=== PATIENT | female | born 1965 | race Caucasian/White ===

== ENCOUNTER 2017-02-10 11:05 | Emergency (ER) | payer SELFPAY ==
[~2017-02-10] VITALS: Ht 172.7 cm; Wt 90.9 kg
[2017-02-10 11:07] VITALS: TEMP 98.3
[2017-02-10] MEDS ORDERED: LEXAPRO20 MG PO (11:36)
[2017-02-10] MEDS ORDERED: NORVASC 10MG10 MG PO (11:37)
[2017-02-10] MEDS ORDERED: ZESTRIL40 MG PO (11:37)
[2017-02-10] MEDS ORDERED: LIPITOR 80MG80 MG PO (11:37)
[2017-02-10] MEDS ORDERED: PLAVIX 75MG TAB75 MG PO (11:37)
[2017-02-10] MEDS ORDERED: NITROSTAT0.4 MG/TAB SL (11:38)
[2017-02-10] MEDS ORDERED: TENORMIN 5050 MG/TAB PO (11:38)
[2017-02-10] MEDS ORDERED: ASPIRIN 81M81 MG/TA2 PO (11:38)
[2017-02-10 11:56] LABS: BASO # 0.1 (0.0-0.2); BASO % 0.8 % (0.0-2.0); EOS # 0.1 (0.0-0.7); GRAN # 4.3 (1.4-6.5); HEMATOCRIT 40.4 % (37.0-47.0); HEMOGLOBIN 13.3 g/dl (12.5-16.0); LYMPH # 1.5 (1.2-3.4); LYMPH % 22.8 % (20.0-51.0); MEAN CELL VOLUME 93 fl (80.0-100.0); MEAN CORPUSCULAR HEMOGLOBIN 31 pg (27.0-31.0); MEAN CORPUSCULAR HGB CONC 33 g/dl (33.0-37.0); MONO # 0.4 (0.1-0.6); MONO % 6.1 % (1.7-9.3); PLATELET COUNT 261 K/mm3 (130-400); RED BLOOD COUNT 4.36 M/mm3 (4.10-5.30); REDCELL DISTRIBUTION WIDTH-CV 13.2 % (11.5-14.5); WHITE BLOOD COUNT 6.4 K/mm3 (4.8-10.8)
[2017-02-10 12:22] LABS: ADJUSTED CALCIUM 8.7 mg/dL (8.4-10.2); ALBUMIN 4.1 gm/dL (3.5-5.0); BILIRUBIN,TOTAL 0.7 mg/dL (0.0-1.0); CALCIUM 8.8 mg/dL (8.4-10.2); CREATININE, serum 0.84 mg/dL (0.52-1.25); TOTAL PROTEIN 6.9 gm/dL (6.4-8.2)
[2017-02-10 13:09] VITALS: BP 115/79; PULSE 50
== END 2017-02-10 13:09 | disposition home or self-care (01) ==
LOC: COL.ER 11:05
PROVIDERS: Emergency Medicine
DX: M79.661 Pain in right lower leg (principal); I25.10 Atherosclerotic heart disease of native coronary artery without angina pectoris; Z95.5 Presence of coronary angioplasty implant and graft; I25.2 Old myocardial infarction; Z79.02 Long term (current) use of antithrombotics/antiplatelets

== ENCOUNTER 2018-08-05 12:32 | Day surgery (SDC) | payer SELFPAY ==
[2018-08-05] VITALS (14 sets, daily range): BP systolic 115–155; BP diastolic 66–96; PULSE 50–75; TEMP 97.5–98
[~2018-08-05] VITALS: Ht 172.7 cm; Wt 80.0 kg
[~2018-08-05 12:32] MED LIST: ASPIRIN 81M81 MG/TA2 PO; LEXAPRO20 MG PO; LIPITOR 80MG80 MG PO; NITROSTAT0.4 MG/TAB SL; NORVASC 10MG10 MG PO; PLAVIX 75MG TAB75 MG PO; TENORMIN 5050 MG/TAB PO; ZESTRIL40 MG PO
[2018-08-05 13:27] LABS: HEMOGLOBIN 10.6 g/dl (12.5-16.0); MEAN CELL VOLUME 96 fl (80.0-100.0); MEAN CORPUSCULAR HEMOGLOBIN 31 pg (27.0-31.0); MEAN CORPUSCULAR HGB CONC 32 g/dl (33.0-37.0); PLATELET COUNT 183 K/mm3 (130-400); RED BLOOD COUNT 3.44 M/mm3 (4.10-5.30); REDCELL DISTRIBUTION WIDTH-CV 12.9 % (11.5-14.5)
[2018-08-05 13:29] LABS: PROTHROMBIN TIME 11.2 SECONDS (9.7-12.8)
[2018-08-05 13:35] LABS: HEMATOCRIT 32.9 % (37.0-47.0)
[2018-08-05 13:36] LABS: CALCIUM 8.7 mg/dL (8.4-10.2); CREATININE, serum 0.93 mg/dL (0.52-1.25)
[2018-08-05] MEDS ORDERED: TENORMIN 2525 MG/TAB PO (13:58)
[2018-08-05] MEDS ORDERED: IBU800 M1 PO (14:00)
[2018-08-06] VITALS: BP 141/76; PULSE 55; TEMP 97.8
[2018-08-06 04:00] VITALS: BP 92/48; PULSE 47; TEMP 97.7
[2018-08-06 04:05] VITALS: BP 92/48; PULSE 47
[2018-08-06 06:36] LABS: BASO % 0.5 % (0.0-2.0); EOS # 0.1 (0.0-0.7); EOS % 2.6 % (0-4.0); GRAN # 2.7 (1.4-6.5); GRAN % 62.3 % (42.2-75.2); HEMOGLOBIN 10.5 g/dl (12.5-16.0); LYMPH # 1.2 (1.2-3.4); LYMPH % 27.6 % (20.0-51.0); MEAN CELL VOLUME 94 fl (80.0-100.0); MEAN CORPUSCULAR HEMOGLOBIN 31 pg (27.0-31.0); MEAN CORPUSCULAR HGB CONC 33 g/dl (33.0-37.0); MEAN PLATELET VOLUME 10.1 fl (7.4-10.4); MONO # 0.3 (0.1-0.6); MONO % 6.5 % (1.7-9.3); PLATELET COUNT 174 K/mm3 (130-400); RED BLOOD COUNT 3.44 M/mm3 (4.10-5.30)
[2018-08-06 06:42] LABS: HEMATOCRIT 32.2 % (37.0-47.0)
[2018-08-06 06:49] LABS: CALCIUM 8.4 mg/dL (8.4-10.2); CREATININE, serum 0.82 mg/dL (0.52-1.25); MAGNESIUM 1.7 mg/dL (1.6-2.3); POTASSIUM 4.5 mmol/L (3.4-5.0)
[2018-08-06 08:00] VITALS: BP 123/69; PULSE 57
== END 2018-08-06 11:50 | disposition home or self-care (01) ==
LOC: COL.CAR 12:32 → ICU 16:00 → COL.CAR 08-06 11:50
PROVIDERS: Internal Medicine Cardiovascular Disease
DX: T82.855A Stenosis of coronary artery stent, initial encounter (principal); I25.10 Atherosclerotic heart disease of native coronary artery without angina pectoris; Z95.5 Presence of coronary angioplasty implant and graft; I10 Essential (primary) hypertension; E78.5 Hyperlipidemia, unspecified; G43.909 Migraine, unspecified, not intractable, without status migrainosus; Z79.02 Long term (current) use of antithrombotics/antiplatelets; Z79.82 Long term (current) use of aspirin; Z79.899 Other long term (current) drug therapy; Z82.3 Family history of stroke; E78.00 Pure hypercholesterolemia, unspecified; I34.0 Nonrheumatic mitral (valve) insufficiency
CPT/HCPCS: OP; C1725; C1769; C1874; C1887; J0583; J1644; J2250; J3010; Q9967

== ENCOUNTER 2020-07-30 12:27 | Observation (INO) | payer SELFPAY ==
[2020-07-30] VITALS (221 sets, daily range): BP systolic 91–109; BP diastolic 39–85; PULSE 58–81; TEMP 97.5–98.3; O2SAT 74–100
[~2020-07-30] VITALS: Ht 172.7 cm; Wt 84.8 kg
[~2020-07-30 12:27] MED LIST changes: +IBU800 M1 PO; +IMDUR 30MG30 MG/TAB PO; +TENORMIN 2525 MG/TAB PO
[2020-07-30 12:59] LABS: BASO % 0.6 % (0.0-2.0); EOS # 0.1 (0.0-0.7); EOS % 1.5 % (0-4.0); GRAN # 5.6 (1.4-6.5); GRAN % 76.9 % (42.2-75.2); HEMOGLOBIN 11.7 g/dl (12.5-16.0); LYMPH # 1.1 (1.2-3.4); LYMPH % 14.6 % (20.0-51.0); MEAN CELL VOLUME 94 fl (80.0-100.0); MEAN CORPUSCULAR HEMOGLOBIN 31 pg (27.0-31.0); MEAN CORPUSCULAR HGB CONC 33 g/dl (33.0-37.0); MEAN PLATELET VOLUME 10.3 fl (7.4-10.4); MONO # 0.4 (0.1-0.6); MONO % 6.1 % (1.7-9.3); PLATELET COUNT 217 K/mm3 (130-400); RED BLOOD COUNT 3.83 M/mm3 (4.10-5.30); REDCELL DISTRIBUTION WIDTH-CV 12.6 % (11.5-14.5)
[2020-07-30 13:09] LABS: PROTHROMBIN TIME 11.2 SECONDS (9.7-12.8)
[2020-07-30 13:12] LABS: PARTIAL THROMBOPLASTIN TIME 28.7 SECONDS (26.0-37.0)
[2020-07-30 13:20] LABS: D-DIMER < 200.00 ng/mLDDu (200-230)
[2020-07-30 13:24] LABS: ALANINE AMINOTRANSFERASE 21 U/L (4-34); ALBUMIN 4.2 gm/dL (3.5-5.0); ALKALINE PHOSPHATASE 113 U/L (50-136); ANION GAP 10 mmol/L (7-16); AST,SGOT 30 U/L (15-37); BILIRUBIN,TOTAL 0.9 mg/dL (0.0-1.0); BLOOD UREA NITROGEN 19 mg/dL (7-17); CALCIUM 8.9 mg/dL (8.4-10.2); CARBON DIOXIDE 26 mmol/L (22-30); CHLORIDE 103 mmol/L (98-107); CREATININE, serum 1.04 (0.52-1.25); GLUCOSE 99 mg/dL (74-106); POTASSIUM 4.1 mmol/L (3.4-5.0); SODIUM 140 mmol/L (137-145)
[2020-07-30 13:41] LABS: TROPONIN-I < 0.012 ng/mL (0.000-0.035)
--- NOTE | 2020-07-30 14:08 | NUR ---
SEE CHECO FOR ALL MEDICATION ADMIN TIMES, INTRA AND POST SEDATION ASSESSENTS
[2020-07-30 17:46] LABS: TRICYCLIC ANTIDEPRESS URINE NEGATIVE
--- NOTE | 2020-07-30 21:45 | NUR ---
Pt arrived to the floor via wheelchair. Pt was able to ambulate from the wheelchair to the bed. Pt stated that she does not have any pain at this time. Pt has fluids infusing at 125ml/hr. Pt is currently resting in bed and has her call light within reach.
--- NOTE | 2020-07-30 22:00 | NUR ---
I attempted to deflate the compression dressing 3cc and the area appeared red so I inflated 3cc back into the compression dressing. Pt has been to the restroom a few times she said that she is having very loose stools. Pt requested to have something to sleep. Kaila the hospitalist was notified at this time and the pt was given melatonin 9mg PO for bedtime. Pt has her call light within reach.
[2020-07-31] VITALS: BP 103/53; PULSE 74; TEMP 98.1
--- NOTE | 2020-07-31 | NUR ---
Pt currently resting in bed I have been able to deflate the compressing dressing about 1cc about every hour without redness. Pt was ok with me deflating the compression very slow. Pt has slept well since she received the melatonin for bedtime. Pt has no had anymore loose stools. Pt has her call light within reach.
[2020-07-31 04:27] VITALS: BP 105/60; PULSE 76; TEMP 97.2
--- NOTE | 2020-07-31 06:50 | NUR ---
Pt compression dressing and brace was removed at this time. I reported off to SAGAR Whatley. while we both removed the compression brace and a new bandaid was place. Pt has no compliants of pain and her call light is within reach.
[2020-07-31 07:46] VITALS: BP 122/69; PULSE 68; TEMP 98
[2020-07-31 09:00] VITALS: BP 103/57
--- NOTE | 2020-07-31 09:37 | NUR ---
Initial visit; Patient thanked Signals Collection Technician for stopping though declined spiritual care.
--- NOTE | 2020-07-31 10:30 | NUR ---
Dr Robles spoke with about the plan for discharge. She was upset because we tested her for drugs when she was admitted. She did not want it on her record that she tested postive for meth. Explained that is standard care for patients having procedures. She denies pain, shortness of breath or nausea. Her radial site is C/D/I, no edema to puncture site. No other changes at this time. Just waiting for chest CT results so patient can discharge. Call light within reach.
--- NOTE | 2020-07-31 10:38 | NUR ---
Embossing Unit Operator met with patient to discuss discharge planning. Patient lives in [place] with her ex-, Kaleb (ph#[phone]). Patient goes to the [facility] for primary care and medications. Patient does not use any DME and reports independence with ADLS. Patient expressed that she was upset about her positive UDS for methamphetamines. Patient states this was something she did with her friends last week and does not do it often. Patient states this is the first time she's ever had a positive UDS. Patient is worried that this will now be on record and effect her eligibility for social security if she ever applies. Patient states she feels people here are judging her. SW advised patient that we are here to help her, not plunger machine operator her. SW advised it is important for the clinical team to know if she has any illegal substances in her system as it can affect the plan of care. Patient does not want Kaleb to know she tested positive. SW spoke with patient about Advance Directives and provided education on legal next of kin. Patient is not to Kaleb and reports she has children, but does not speak to them. Patient does not want her children contacted. SW located children's contact information in a previous note. Patient has three adult children: Stephania (ph#[phone]), Chris (ph#[phone]), and Kenny (ph#[phone]). Patient states if she were not able to make her own medical decisions, she would want Kaleb to make choices for her about her health care. Patient would like to complete DPOA-HC. SW assisted patient in completing form and patient chose to designate Kaleb and no other alternate. SW provided original and copies to patient then placed a copy on patient's chart. Patient plans to return home upon discharge. SW consulted Financial Counseling as patient is self pay. SW to continue to follow as needed.
[2020-07-31] MEDS ORDERED: RANEXA 500MG T500 MG PO (11:34)
[2020-07-31 11:37] VITALS: BP 103/57; PULSE 61; TEMP 98.2
--- NOTE | 2020-07-31 12:30 | NUR ---
Patient is discharging home. Discharge instructions discussed with patient. No qustions verbalized. INT discontinued. Explained when her follow up appointments are. Discussed lifting restrictions for right arm. Copies of discharge instructins sent with patient. All belongings packed up and sent with patient. Explained new medications sent to her pharmacy. She verbalized understanding. Patient walked out with Dinah BARAHONA.
== END 2020-07-31 12:30 | disposition home or self-care (01) ==
LOC: COL.ER 12:27 → ICU 13:27 → COL.ER 13:52 → SURG 20:16
PROVIDERS: Family Medicine; ADMIT Internal Medicine
DX: R07.89 Other chest pain (principal); I25.2 Old myocardial infarction; I25.119 Atherosclerotic heart disease of native coronary artery with unspecified angina pectoris; I10 Essential (primary) hypertension; F32.9 Major depressive disorder, single episode, unspecified; E78.5 Hyperlipidemia, unspecified; F15.10 Other stimulant abuse, uncomplicated; Z79.02 Long term (current) use of antithrombotics/antiplatelets; Z79.82 Long term (current) use of aspirin; Z79.899 Other long term (current) drug therapy; Z95.5 Presence of coronary angioplasty implant and graft; Z86.11 Personal history of tuberculosis
CPT/HCPCS: G0378; J1644; J1650; J2250; J3010; Q9967

== ENCOUNTER 2021-01-17 11:52 | Observation (INO) | payer SELFPAY ==
[2021-01-17] VITALS (194 sets, daily range): BP systolic 141–163; BP diastolic 70–91; PULSE 62–94; TEMP 97.5–97.9; O2SAT 88–100
[~2021-01-17] VITALS: Ht 172.7 cm; Wt 87.0 kg
[~2021-01-17 11:52] MED LIST changes: +RANEXA 500MG T500 MG PO
[2021-01-17 12:54] LABS: BASO % 0.6 % (0.0-2.0); EOS # 0.1 (0.0-0.7); EOS % 2.2 % (0-4.0); GRAN # 3.5 (1.4-6.5); GRAN % 71.7 % (42.2-75.2); HEMATOCRIT 42.7 % (37.0-47.0); HEMOGLOBIN 13.7 g/dl (12.5-16.0); LYMPH # 0.9 (1.2-3.4); LYMPH % 18.6 % (20.0-51.0); MEAN CELL VOLUME 95 fl (80.0-100.0); MEAN CORPUSCULAR HEMOGLOBIN 31 pg (27.0-31.0); MEAN CORPUSCULAR HGB CONC 32 g/dl (33.0-37.0); MEAN PLATELET VOLUME 9.7 fl (7.4-10.4); MONO # 0.3 (0.1-0.6); MONO % 6.5 % (1.7-9.3); PLATELET COUNT 212 K/mm3 (130-400); RED BLOOD COUNT 4.49 M/mm3 (4.10-5.30); REDCELL DISTRIBUTION WIDTH-CV 12.5 % (11.5-14.5)
[2021-01-17 13:05] LABS: ALANINE AMINOTRANSFERASE 34 U/L (4-34); ALBUMIN 3.8 gm/dL (3.5-5.0); ALKALINE PHOSPHATASE 134 U/L (50-136); ANION GAP 5 mmol/L (7-16); AST,SGOT 31 U/L (15-37); BILIRUBIN,TOTAL 0.2 mg/dL (0.0-1.0); BLOOD UREA NITROGEN 14 mg/dL (7-17); CALCIUM 8.7 mg/dL (8.4-10.2); CARBON DIOXIDE 31 mmol/L (22-30); CHLORIDE 102 mmol/L (98-107); CREATININE, serum 0.85 (0.52-1.25); GLUCOSE 86 mg/dL (74-106); POTASSIUM 4.2 mmol/L (3.4-5.0); SODIUM 138 mmol/L (137-145); TOTAL PROTEIN 6.7 gm/dL (6.4-8.2)
[2021-01-17 13:06] LABS: ALCOHOL(ethanol),MEDICAL < 10 mg/dL; C-REACTIVE PROTEIN < 0.5 mg/dL (0.0-0.9)
[2021-01-17 13:15] LABS: TROPONIN-I 0.015 ng/mL (0.000-0.035)
[2021-01-17 14:35] LABS: PROTHROMBIN TIME 10.8 SECONDS (9.7-12.8)
--- NOTE | 2021-01-17 15:20 | NUR ---
PT to room 2 in ICU from cathode washer. After being settles in bed patient is upset that her is not present. Later found out went home and would be back after taking care of dogs. PT raises voice exclaiming about wanting food and that the "Doctor needs to hurry up". After initial assessment and engaging in conversation with the patient she becomes much more relaxed. Pt advised that diet order would be placed soon and we would get her a meal as soon as we can. PT is good with this and asks to take a nap.PT has call light in hand and will call for help when needed.
--- NOTE | 2021-01-17 19:13 | NUR ---
Report given to SAGAR Faria. Care relinquished at this time.
--- NOTE | 2021-01-17 20:00 | NUR ---
Assessment complete and charted. Patient accdiently pulled IV to left AC out during transfer to restroom. Fluids switched to INT in right AC. TR band air releasing as ordered. Patient had a small amount of bleeding present when removing 5 mls. Air replaced. Will continue to remove air as able per orders. Provided with snack. Call light in reach.
[2021-01-18] VITALS (229 sets, daily range): BP systolic 142–151; BP diastolic 79–81; PULSE 60–79; TEMP 97.4–97.9; O2SAT 71–100
--- NOTE | 2021-01-18 00:06 | NUR ---
Patient up to restroom and returned to bed. Requested tylenol for headache. Order obtained and provided. Radial arm band air complete removed at this time. Monitored for bleeding. Site had scant drainage present from previous release of air. No new bloody drainage. Patient educated to report changes. Call light in reach.
--- NOTE | 2021-01-18 06:16 | NUR ---
Patient had uneventful night. While using restroom this AM patient stood out of bed quickly and reported chest pain and shortness of breath with quick movement. Patient sat down in bed and chest pain resolved. Resting in bed currently. Call light in reach. Patient educated to report an continued chest pain.
--- NOTE | 2021-01-18 07:13 | NUR ---
Report given to SAGAR Olvera
[2021-01-18 07:19] LABS: BASO % 0.7 % (0.0-2.0); EOS # 0.1 (0.0-0.7); EOS % 2.3 % (0-4.0); GRAN # 2.7 (1.4-6.5); GRAN % 62.5 % (42.2-75.2); HEMATOCRIT 40.9 % (37.0-47.0); HEMOGLOBIN 13.2 g/dl (12.5-16.0); LYMPH # 1.2 (1.2-3.4); MEAN CELL VOLUME 95 fl (80.0-100.0); MEAN CORPUSCULAR HEMOGLOBIN 31 pg (27.0-31.0); MEAN CORPUSCULAR HGB CONC 32 g/dl (33.0-37.0); MEAN PLATELET VOLUME 9.8 fl (7.4-10.4); MONO # 0.3 (0.1-0.6); PLATELET COUNT 192 K/mm3 (130-400); RED BLOOD COUNT 4.29 M/mm3 (4.10-5.30); REDCELL DISTRIBUTION WIDTH-CV 12.6 % (11.5-14.5)
[2021-01-18 07:37] LABS: CALCIUM 8.4 mg/dL (8.4-10.2); CREATININE, serum 0.89 (0.52-1.25); POTASSIUM 4.3 mmol/L (3.4-5.0)
--- NOTE | 2021-01-18 08:20 | NUR ---
Pt has eaten breakfast, now wishing to not be disturbed to sleep until providers come by to discharge pt
--- NOTE | 2021-01-18 10:42 | NUR ---
Retail Store Clerk attended clinical rounds with the team. The patient is discharging home today, 01/18. After rounds, SW met with the patient to discuss the discharge plan. The patient lives independently in [place] and denies DME use. The patient receives medications and medical care at [facility] in . The patient has advanced directives in the EMR and they designate Eduardo Hernandez. The patient has no concern about returning home, Eduardo will provide transportation. Discharge disposition: Home
== END 2021-01-18 10:42 | disposition home or self-care (01) ==
LOC: COL.ER 11:52 → ICU 13:33 → COL.ER 13:33 → ICU 13:33 → COL.ER 14:00 → ICU 01-18 10:42
PROVIDERS: Nurse Practitioner; Physician Assistant; ADMIT Student in an Organized Health Care Education/Training Program
DX: I25.10 Atherosclerotic heart disease of native coronary artery without angina pectoris (principal); I11.0 Hypertensive heart disease with heart failure; I50.9 Heart failure, unspecified; E78.5 Hyperlipidemia, unspecified; F32.9 Major depressive disorder, single episode, unspecified; Z79.899 Other long term (current) drug therapy; Z79.02 Long term (current) use of antithrombotics/antiplatelets; Z79.82 Long term (current) use of aspirin; Z95.5 Presence of coronary angioplasty implant and graft; Z91.14 Patient's other noncompliance with medication regimen; Z80.9 Family history of malignant neoplasm, unspecified
CPT/HCPCS: 99222-AI; C1725; C1769; C1874; C1887; G0378; J1644; J2060; J2250; J2270; J3010

== ENCOUNTER 2021-04-17 13:56 | Emergency (ER) | payer MEDICAID ==
[~2021-04-17] VITALS: Ht 172.7 cm; Wt 84.1 kg
[2021-04-17 15:10] LABS: COLLECTION METHOD CLEAN CATCH
[2021-04-17 15:27] LABS: MUCOUS Present /lpf; PH 5 (5-8); SQUAMOUS EPITHELIAL 20-50 /hpf; URINE APPEARANCE Cloudy; URINE BACTERIA Rare /hpf; URINE BILIRUBIN Negative (NEGATIVE); URINE BLOOD 1+ (NEGATIVE); URINE COLOR Yellow; URINE GLUCOSE Negative (NEGATIVE); URINE KETONE Negative (NEGATIVE); URINE LEUKOCYTE ESTERASE 1+ (NEGATIVE); URINE NITRATE Negative (NEGATIVE); URINE PROTEIN(semi-quant) Negative (NEGATIVE)
[2021-04-17 15:30] LABS: TRICYCLIC ANTIDEPRESS URINE NEGATIVE
[2021-04-17 15:30] LABS: BASO % 0.4 % (0.0-2.0); EOS # 0.1 (0.0-0.7); EOS % 1.2 % (0-4.0); GRAN # 5.5 (1.4-6.5); GRAN % 81.6 % (42.2-75.2); HEMATOCRIT 40.8 % (37.0-47.0); HEMOGLOBIN 13.6 g/dl (12.5-16.0); LYMPH # 0.6 (1.2-3.4); LYMPH % 9.1 % (20.0-51.0); MEAN CELL VOLUME 90 fl (80.0-100.0); MEAN CORPUSCULAR HEMOGLOBIN 30 pg (27.0-31.0); MEAN CORPUSCULAR HGB CONC 33 g/dl (33.0-37.0); MEAN PLATELET VOLUME 9.3 fl (7.4-10.4); MONO # 0.5 (0.1-0.6); MONO % 7.4 % (1.7-9.3); PLATELET COUNT 253 K/mm3 (130-400); RED BLOOD COUNT 4.53 M/mm3 (4.10-5.30); REDCELL DISTRIBUTION WIDTH-CV 12.3 % (11.5-14.5)
[2021-04-17 16:00] LABS: GLUCOSE 81 mg/dL (74-106)
[2021-04-17 16:01] LABS: BLOOD UREA NITROGEN 12 mg/dL (7-17); CALCIUM 8.8 mg/dL (8.4-10.2); CARBON DIOXIDE 27 mmol/L (22-30); CHLORIDE 105 mmol/L (98-107); CREATININE, serum 0.84 (0.52-1.25); POTASSIUM 3.4 mmol/L (3.4-5.0); SODIUM 139 mmol/L (137-145)
[2021-04-17 16:02] LABS: ALANINE AMINOTRANSFERASE 17 U/L (4-34); ALBUMIN 3.9 gm/dL (3.5-5.0); ALKALINE PHOSPHATASE 129 U/L (50-136); AST,SGOT 22 U/L (15-37); BILIRUBIN,TOTAL 0.4 mg/dL (0.0-1.0); TOTAL PROTEIN 7.1 gm/dL (6.4-8.2)
[2021-04-17 16:04] LABS: ANION GAP 7 mmol/L (7-16)
[2021-04-17 16:05] LABS: TROPONIN-I 0.034 ng/mL (0.000-0.035)
[2021-04-17 16:37] LABS: ACETAMINOPHEN < 10 ug/mL (10-30); ALCOHOL(ethanol),MEDICAL < 10 mg/dL; SALICYLATE < 1.0 mg/dL
[2021-04-17] MEDS ORDERED: LIPITOR 80MG80 MG PO (19:22)
[2021-04-17] MEDS ORDERED: TENORMIN 2525 MG/TAB PO (19:22)
[2021-04-17] MEDS ORDERED: ZESTRIL40 MG PO (19:22)
[2021-04-17] MEDS ORDERED: IMDUR 30MG30 MG/TAB PO (19:22)
[2021-04-17] MEDS ORDERED: LEXAPRO20 MG PO (19:22)
[2021-04-17] MEDS ORDERED: PLAVIX 75MG TAB75 MG PO (19:22)
[2021-04-18 01:14] VITALS: BP 147/98; PULSE 81; TEMP 98.7
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
== END 2021-04-18 01:36 | disposition home or self-care (01) ==
LOC: COL.ER 13:56
PROVIDERS: Physician Assistant
DX: R07.89 Other chest pain (principal); F32.9 Major depressive disorder, single episode, unspecified; R51.9 Headache, unspecified; I10 Essential (primary) hypertension; R45.851 Suicidal ideations; T74.31XA Adult psychological abuse, confirmed, initial encounter; I25.10 Atherosclerotic heart disease of native coronary artery without angina pectoris; Z95.9 Presence of cardiac and vascular implant and graft, unspecified; Z79.82 Long term (current) use of aspirin
CPT/HCPCS: J0360; J1885; J2765

== ENCOUNTER 2021-05-01 07:15 | Observation (INO) | payer MEDICAID ==
[~2021-05-01] VITALS: Ht 175.3 cm; Wt 85.0 kg
[2021-05-01] VITALS (11 sets, daily range): BP systolic 109–143; BP diastolic 49–80; PULSE 53–69; TEMP 97.9
[2021-05-01 07:56] LABS: BASO # 0.1 (0.0-0.2); BASO % 0.9 % (0.0-2.0); EOS # 0.1 (0.0-0.7); EOS % 2.4 % (0-4.0); GRAN # 3.4 (1.4-6.5); GRAN % 58.2 % (42.2-75.2); HEMATOCRIT 44.3 % (37.0-47.0); HEMOGLOBIN 13.9 g/dl (12.5-16.0); LYMPH # 1.8 (1.2-3.4); LYMPH % 31.2 % (20.0-51.0); MEAN CELL VOLUME 95 fl (80.0-100.0); MEAN CORPUSCULAR HEMOGLOBIN 30 pg (27.0-31.0); MEAN CORPUSCULAR HGB CONC 31 g/dl (33.0-37.0); MEAN PLATELET VOLUME 9.5 fl (7.4-10.4); MONO # 0.4 (0.1-0.6); PLATELET COUNT 255 K/mm3 (130-400); RED BLOOD COUNT 4.65 M/mm3 (4.10-5.30); REDCELL DISTRIBUTION WIDTH-CV 13.2 % (11.5-14.5)
[2021-05-01 07:58] LABS: ALBUMIN 4.1 gm/dL (3.5-5.0); BILIRUBIN,TOTAL 0.4 mg/dL (0.0-1.0); CALCIUM 8.9 mg/dL (8.4-10.2); CREATININE, serum 1.02 (0.52-1.25); POTASSIUM 4.7 mmol/L (3.4-5.0); TOTAL PROTEIN 7.2 gm/dL (6.4-8.2)
[2021-05-01 08:10] LABS: TROPONIN-I 0.017 ng/mL (0.000-0.035)
[2021-05-01 11:06] LABS: PROTHROMBIN TIME 10.8 SECONDS (9.7-12.8)
[2021-05-01 11:15] LABS: PARTIAL THROMBOPLASTIN TIME 27.5 SECONDS (26.0-37.0)
--- NOTE | 2021-05-01 13:54 | NUR ---
submarine worker spoke with Anel Hanson, therapist at the Crisis Stabilization Unit and confirmed that patient will return there upon medical clearance. Worker spoke with patient's provider, Oralia, and advised that we will provide patient with a medication voucher. Anel is aware of the medication voucher and confirms that [facility] delivers to their facility.
--- NOTE | 2021-05-01 14:00 | NUR ---
PT IS BACK FROM [facility]. REPORT FROM HA KEITH. PT IS AWAKE AND ALERT, NSR ON MONITOR, TELE INITIATED. TR BAND TO RT WRIST, CMS INTACT DISTAL. PT AWARE OF POC. AT THIS TIME PLAN FOR DISCHARGE HOME AFTER MONITORING COMPLETE AND TR BAND REMOVED. LUNCH ORDERED. CALL LIGHT IN REACH.
--- NOTE | 2021-05-01 15:00 | NUR ---
UP TO BR IN ROOM 12 WITH STAND BY ASSIST, GAIT IS STEADY. BACK TO BED AND BACK ON MONITOR. NO CONCERNS AT THIS TIME.
--- NOTE | 2021-05-01 15:50 | NUR ---
LEFT MESSAGE FOR MITCH MORAN TO INFORM HER THAT PT WAS HAVING MID-CHEST PAIN, SIMILAR TO THAT WHICH SHE HAD PRIOR TO ER VISIT THIS AM. PT SAYS PAIN IS SQUEEZING IN NATURE AND COMES AND GOES. NO CHANGES NOTED ON MONITOR DURING ITS OCCURENCE, VITALS REMAINED UNCHANGED.
[2021-05-01] MEDS ORDERED: NORVASC 5MG5 MG/TAB PO (15:55)
[2021-05-01] MEDS ORDERED: NITROSTAT0.4 MG/TAB SL (15:55)
[2021-05-01] MEDS ORDERED: ZESTRIL40 MG PO (16:06)
--- NOTE | 2021-05-01 16:10 | NUR ---
RECEIVED CALL FROM MITCH MORAN AND DR VARGAS. I UPDATED THEM ON PT'S CURRENT CONDITION. CHEST PAIN HAS RESOLVED, PT RESTING COMFORTABLY AT THIS TIME. PT ADVISED THAT DUE TO RECURRENT CP, PLAN WAS TO ADMIT HER AND WATCH HER OVERNIGHT. PT AMENABLE TO THIS PLAN.
--- NOTE | 2021-05-01 16:22 | NUR ---
personal service workers confirmed that patient will transfer back to the Crisis stabilization Unit on 05/02/2021 and the unit will provide transportation, per Anel Chavez. Worker assisted with securing two new prescriptions at [facility] and faxed them a script. [facility] will deliver the medication to the Crisis unit on 05/02/2021. Worker confirmed with the crisis unit that patient has her other medications filled and they are at the unit. Worker collaborated with saritha Barton regarding the above information.
--- NOTE | 2021-05-01 17:49 | NUR ---
PT CONTINUES TO REST COMFORTABLY, NO COMPLAINTS. WE ARE IN PROCESS OF DEFLATING TR BAND, PT HAD SOME OOZING INITIALLY WHEN DEFLATING BAND, BUT NOW IT LOOKS GOOD, NO MORE BLEEDING AIR IS REMOVED. DINNER HAS BEEN ORDERED, PT HAS BEEN UP TO BATHROOM WITH STEADY GAIT, PT AWARE OF PLAN FOR TRANSFER TO FLOOR AFTER 1930.
--- NOTE | 2021-05-01 20:10 | NUR ---
REPORT TO SEBASTIEN ON MEDICAL. PT ON TELE. SHE HAS BEEN STABLE WITH NO PROBLEMS. TR BAND WAS DEFLATED WITH NO PROBLEM, SITE DRESSED WITH BANDAID, FOLDED 2X2 AND COBAN. CMS INTACT DISTAL. PT TO FLOOR VIA WHEELCHAIR.
--- NOTE | 2021-05-02 01:09 | NUR ---
PT REPORTS SUBSTERNAL CHEST PAIN 7/10 WITH WORST SENSATION AT 10/10 WITH RADIATION TO BACK AND LEFT ARM. EKG ORDERED, PT'S VSS, MORPHINE ADMINISTERED ORDERED. UPON F/U PT REPORTS PERSISTENT INTERMITTENT PAIN WITH THE WORST BEING 10/10 AND MILD PAIN AT 5/10. THIS NURSE WILL CONTINUE TO F/U.
--- NOTE | 2021-05-02 02:52 | NUR ---
PT CALLED NURSES DESK TO REPORT CHEST PAIN 5/10, VSS, MALOOX ORDERED, TYLENOL ORDERED AND ADMINISTERED, AFTER ADMINISTRATION PT REQUESTS NURSE TO CALL HOSPITALIST FOR MORE MORPHINE, THIS NURSE EXPLAINED TO PT CURRENT MEDICATION ADMINISTRATION REASON AND NEED TO F/U PRIOR TO FURTHER MEDICATION INTERVENTION. THIS NURSE WILL RELAY TO HOSPITALIST. CALL LIGHT WITHIN REACH.
[2021-05-02 05:19] VITALS: BP 151/71; PULSE 55; TEMP 97.6
--- NOTE | 2021-05-02 06:01 | NUR ---
PT CONTINUES TO C/O PAIN TO SUBSTERNAL CHEST WITH NO CURRENT RADIATION, PT RATES PAIN 5/1, ALL MEDICATIONS ADMINISTERED ORDERED. 1/2 NS INFUSING AT 200ML HR TO RIGHT AC IV. VSS. NURSE WILL CONTINUE TO MONITOR. CALL LIGHT WITHIN REACH.
[2021-05-02 07:11] LABS: CALCIUM 8.1 mg/dL (8.4-10.2); CREATININE, serum 0.92 (0.52-1.25); POTASSIUM 4.5 mmol/L (3.4-5.0)
[2021-05-02 07:13] LABS: BASO # 0.1 (0.0-0.2); BASO % 0.8 % (0.0-2.0); EOS # 0.1 (0.0-0.7); EOS % 2.2 % (0-4.0); GRAN # 3.8 (1.4-6.5); GRAN % 63.8 % (42.2-75.2); HEMATOCRIT 39.8 % (37.0-47.0); HEMOGLOBIN 12.6 g/dl (12.5-16.0); LYMPH # 1.6 (1.2-3.4); LYMPH % 26.7 % (20.0-51.0); MEAN CELL VOLUME 97 fl (80.0-100.0); MEAN CORPUSCULAR HEMOGLOBIN 31 pg (27.0-31.0); MEAN CORPUSCULAR HGB CONC 32 g/dl (33.0-37.0); MEAN PLATELET VOLUME 9.7 fl (7.4-10.4); MONO # 0.4 (0.1-0.6); MONO % 6.3 % (1.7-9.3); PLATELET COUNT 214 K/mm3 (130-400); RED BLOOD COUNT 4.12 M/mm3 (4.10-5.30); REDCELL DISTRIBUTION WIDTH-CV 13.2 % (11.5-14.5)
[2021-05-02 07:44] VITALS: BP 174/68; PULSE 86; TEMP 97.9
[2021-05-02 08:11] VITALS: BP 103/54; PULSE 56; TEMP 98.6
--- NOTE | 2021-05-02 08:40 | NUR ---
PT RESTING COMFORTABLY IN BED, STATES SHE IS HAVING TROUBLE GETTING REST. MORNING MEDICATIONS GIVEN. PT STATES SHES HAVING CHEST PAIN, THIS NURSE OFFERED TYLENOL AND THE PT DENIED AT THIS TIME. NS RUNNING THROUGH IV AT 200ML/HR. CALL LIGHT WITHIN REACH. WILL CONTINUE TO MONITURE.
--- NOTE | 2021-05-02 09:36 | NUR ---
The patient is to discharge today, 05/02, to the Crisis Stabilization Unit. Transportation was scheduled at 1030, via the CSU. NILE informed the patient and her RN of the time. They were both agreeable to the time. [facility] is delivering the patient's meds to the CSU today. NILE faxed CSU the patient's d/c orders. No additional needs at this time.
--- NOTE | 2021-05-03 11:25 | NUR ---
First visit from the transcriptionist. No needs right now.
== END 2021-05-02 10:45 | disposition home or self-care (01) ==
LOC: COL.ER 07:15 → INPTSU 08:45 → MEDICAL 20:00
PROVIDERS: Personal Emergency Response Attendant; Physician Assistant; ADMIT Student in an Organized Health Care Education/Training Program
DX: I25.110 Atherosclerotic heart disease of native coronary artery with unstable angina pectoris (principal); I77.9 Disorder of arteries and arterioles, unspecified; I11.0 Hypertensive heart disease with heart failure; I50.9 Heart failure, unspecified; E78.5 Hyperlipidemia, unspecified; F32.9 Major depressive disorder, single episode, unspecified; F41.9 Anxiety disorder, unspecified; Z95.818 Presence of other cardiac implants and grafts; Z79.82 Long term (current) use of aspirin; Z79.899 Other long term (current) drug therapy; Z79.02 Long term (current) use of antithrombotics/antiplatelets; Z20.822 Contact with and (suspected) exposure to COVID-19
CPT/HCPCS: G0378; J1644; J2250; J2270; J2405; J3010

== ENCOUNTER 2021-07-05 10:45 | Emergency (ER) | payer MEDICAID ==
[~2021-07-05] VITALS: Ht 175.3 cm; Wt 97.7 kg
[~2021-07-05 10:45] MED LIST changes: +NORVASC 5MG5 MG/TAB PO
[2021-07-05 11:17] LABS: BASO % 0.7 % (0.0-2.0); EOS # 0.1 (0.0-0.7); EOS % 2.9 % (0-4.0); GRAN # 2.6 (1.4-6.5); GRAN % 56.2 % (42.2-75.2); HEMATOCRIT 38.8 % (37.0-47.0); HEMOGLOBIN 12.7 g/dl (12.5-16.0); LYMPH # 1.4 (1.2-3.4); LYMPH % 30.8 % (20.0-51.0); MEAN CELL VOLUME 95 fl (80.0-100.0); MEAN CORPUSCULAR HEMOGLOBIN 31 pg (27.0-31.0); MEAN CORPUSCULAR HGB CONC 33 g/dl (33.0-37.0); MEAN PLATELET VOLUME 9.5 fl (7.4-10.4); MONO # 0.4 (0.1-0.6); PLATELET COUNT 201 K/mm3 (130-400); RED BLOOD COUNT 4.08 M/mm3 (4.10-5.30); REDCELL DISTRIBUTION WIDTH-CV 13.2 % (11.5-14.5)
[2021-07-05 11:38] LABS: ALBUMIN 3.5 gm/dL (3.5-5.0); BILIRUBIN,TOTAL 0.3 mg/dL (0.2-1.2); C-REACTIVE PROTEIN 0.1 mg/dL (0.00-0.50); CALCIUM 8.9 mg/dL (8.4-10.2); CREATININE, serum 1.07 mg/dL (0.57-1.11); POTASSIUM 3.7 mmol/L (3.5-4.5); TOTAL PROTEIN 6.7 gm/dL (6.2-8.1)
[2021-07-05 11:45] LABS: TROPONIN-I 0.024 ng/mL (0.00-0.033)
[2021-07-05 12:30] VITALS: BP 126/64; PULSE 70; TEMP 97.6
== END 2021-07-05 12:40 | disposition home or self-care (01) ==
LOC: COL.ER 10:45
PROVIDERS: Nurse Practitioner Primary Care
DX: R07.89 Other chest pain (principal); R51.9 Headache, unspecified; I10 Essential (primary) hypertension; I25.10 Atherosclerotic heart disease of native coronary artery without angina pectoris; F32.A Depression, unspecified; E78.5 Hyperlipidemia, unspecified; F41.9 Anxiety disorder, unspecified; I25.2 Old myocardial infarction; Z79.02 Long term (current) use of antithrombotics/antiplatelets; Z79.899 Other long term (current) drug therapy; Z79.82 Long term (current) use of aspirin

== ENCOUNTER → 2021-07-19 | Outpatient (CLI) | payer MEDICAID ==
[~2021-07-19] MED LIST changes: +DEPAKOTE 250MG250 MG PO; +MINIPRESS 1M1 MG/CAP PO; +MIRALAX PA17 GM/Dose PO; +RANEXA1000 MG PO; +SEROQUEL 1100 MG/TAB PO; +SEROQUEL 200MG200 MG PO; +VOLTAREN 75 DR75 MG PO
== END ==
LOC: COL.RAD 08:29
DX: M47.812 Spondylosis without myelopathy or radiculopathy, cervical region (principal); R06.02 Shortness of breath; M19.012 Primary osteoarthritis, left shoulder; Z87.828 Personal history of other (healed) physical injury and trauma

== ENCOUNTER → 2021-07-29 | Outpatient (CLI) | payer MEDICAID | LOC: COL.RAD 10:15 | DX: R51.9 Headache, unspecified (principal); Z87.828 Personal history of other (healed) physical injury and trauma ==

== ENCOUNTER 2021-08-01 09:04 | Emergency (ER) | payer MEDICAID ==
[~2021-08-01] VITALS: Ht 175.3 cm; Wt 100.0 kg
[~2021-08-01 09:04] MED LIST changes: -DEPAKOTE 250MG250 MG PO; -MINIPRESS 1M1 MG/CAP PO; -MIRALAX PA17 GM/Dose PO; -RANEXA1000 MG PO; -SEROQUEL 1100 MG/TAB PO; -SEROQUEL 200MG200 MG PO; -VOLTAREN 75 DR75 MG PO
[2021-08-01 09:07] VITALS: TEMP 97.5
[2021-08-01 09:54] VITALS: BP 117/76; PULSE 86
== END 2021-08-01 11:25 | disposition home or self-care (01) ==
LOC: COL.ER 09:04
DX: R22.42 Localized swelling, mass and lump, left lower limb (principal); I50.9 Heart failure, unspecified; I25.2 Old myocardial infarction; Z95.9 Presence of cardiac and vascular implant and graft, unspecified; Z79.82 Long term (current) use of aspirin

== ENCOUNTER 2021-08-04 13:20 | Emergency (ER) | payer MEDICAID ==
[~2021-08-04] VITALS: Ht 175.3 cm; Wt 100.0 kg
[2021-08-04] MEDS ORDERED: VOLTAREN 75 DR75 MG PO (14:22)
[2021-08-04 14:30] VITALS: BP 120/64; PULSE 62; TEMP 97.6
[2021-08-05] MEDS ORDERED: MINIPRESS 1M1 MG/CAP PO (17:32)
[2021-08-05] MEDS ORDERED: SEROQUEL 200MG200 MG PO (17:33)
[2021-08-05] MEDS ORDERED: DEPAKOTE 250MG250 MG PO (17:33)
[2021-08-05] MEDS ORDERED: SEROQUEL 1100 MG/TAB PO (17:33)
[2021-08-05] MEDS ORDERED: RANEXA1000 MG PO (17:34)
== END 2021-08-04 14:35 | disposition home or self-care (01) ==
LOC: COL.ER 13:20
DX: S80.12XA Contusion of left lower leg, initial encounter (principal); I25.10 Atherosclerotic heart disease of native coronary artery without angina pectoris; I25.2 Old myocardial infarction; Z79.02 Long term (current) use of antithrombotics/antiplatelets; Z79.82 Long term (current) use of aspirin; X58.XXXA Exposure to other specified factors, initial encounter

== ENCOUNTER 2021-08-05 15:44 | Emergency (ER) | payer MEDICAID ==
[~2021-08-05] VITALS: Ht 172.7 cm; Wt 100.0 kg
[~2021-08-05 15:44] MED LIST changes: +VOLTAREN 75 DR75 MG PO
[2021-08-05 16:45] VITALS: TEMP 97.7
[2021-08-05 17:26] LABS: BASO % 0.8 % (0.0-2.0); EOS # 0.1 K/mm3 (0.0-0.7); EOS % 2.8 % (0-4.0); GRAN # 3.2 K/mm3 (1.4-6.5); GRAN % 63.9 % (42.2-75.2); HEMATOCRIT 37.6 % (37.0-47.0); HEMOGLOBIN 12.4 g/dl (12.5-16.0); LYMPH # 1.2 K/mm3 (1.2-3.4); LYMPH % 23.9 % (20.0-51.0); MEAN CELL VOLUME 95 fl (80.0-100.0); MEAN CORPUSCULAR HEMOGLOBIN 31 pg (27.0-31.0); MEAN CORPUSCULAR HGB CONC 33 g/dl (33.0-37.0); MEAN PLATELET VOLUME 9.8 fl (7.4-10.4); MONO # 0.4 K/mm3 (0.1-0.6); PLATELET COUNT 224 K/mm3 (130-400); RED BLOOD COUNT 3.95 M/mm3 (4.10-5.30); REDCELL DISTRIBUTION WIDTH-CV 12.8 % (11.5-14.5)
[2021-08-05] MEDS ORDERED: MINIPRESS 1M1 MG/CAP PO (17:32)
[2021-08-05] MEDS ORDERED: SEROQUEL 1100 MG/TAB PO (17:33)
[2021-08-05] MEDS ORDERED: DEPAKOTE 250MG250 MG PO (17:33)
[2021-08-05] MEDS ORDERED: SEROQUEL 200MG200 MG PO (17:33)
[2021-08-05] MEDS ORDERED: RANEXA1000 MG PO (17:34)
[2021-08-05 17:50] LABS: ALBUMIN 3.6 gm/dL (3.5-5.0); BILIRUBIN,TOTAL 0.4 mg/dL (0.2-1.2); CALCIUM 9.4 mg/dL (8.4-10.2); CREATININE, serum 1.24 mg/dL (0.57-1.11); POTASSIUM 5.5 mmol/L (3.5-4.5)
[2021-08-05 17:58] LABS: TROPONIN-I 0.021 ng/mL (0.00-0.033)
[2021-08-05 19:46] VITALS: BP 116/62; PULSE 78
== END 2021-08-05 19:47 | disposition home or self-care (01) ==
LOC: COL.ER 15:44
PROVIDERS: Physician Assistant
DX: I12.9 Hypertensive chronic kidney disease with stage 1 through stage 4 chronic kidney disease, or unspecified chronic kidney disease (principal); D63.1 Anemia in chronic kidney disease; N18.9 Chronic kidney disease, unspecified; E87.5 Hyperkalemia; I25.2 Old myocardial infarction; I25.10 Atherosclerotic heart disease of native coronary artery without angina pectoris; E78.5 Hyperlipidemia, unspecified; F41.9 Anxiety disorder, unspecified; F32.A Depression, unspecified; F43.10 Post-traumatic stress disorder, unspecified; Z79.82 Long term (current) use of aspirin; Z79.899 Other long term (current) drug therapy; Z79.02 Long term (current) use of antithrombotics/antiplatelets

== ENCOUNTER → 2021-08-15 | Outpatient (CLI) | payer MEDICAID ==
[~2021-08-15] MED LIST changes: +DEPAKOTE 250MG250 MG PO; +MINIPRESS 1M1 MG/CAP PO; +MIRALAX PA17 GM/Dose PO; +RANEXA1000 MG PO; +SEROQUEL 1100 MG/TAB PO; +SEROQUEL 200MG200 MG PO
== END ==
LOC: COL.VAS 13:31
DX: R06.02 Shortness of breath (principal); R60.0 Localized edema

== ENCOUNTER 2021-08-17 19:04 | Emergency (ER) | payer MEDICAID ==
[~2021-08-17] VITALS: Ht 172.7 cm; Wt 113.6 kg
[~2021-08-17 19:04] MED LIST changes: -MIRALAX PA17 GM/Dose PO
[2021-08-17 21:04] VITALS: TEMP 98.3
[2021-08-17] MEDS ORDERED: MIRALAX PA17 GM/Dose PO (23:36)
[2021-08-18 00:19] VITALS: BP 122/83; PULSE 129
== END 2021-08-18 00:19 | disposition home or self-care (01) ==
LOC: COL.ER 19:04
DX: K59.00 Constipation, unspecified (principal); F32.A Depression, unspecified; F41.9 Anxiety disorder, unspecified; I25.2 Old myocardial infarction; Z86.79 Personal history of other diseases of the circulatory system; Z79.82 Long term (current) use of aspirin; Z79.899 Other long term (current) drug therapy

== ENCOUNTER 2021-09-20 12:45 | Outpatient (RCR) | payer MEDICAID ==
[~2021-09-20 12:45] MED LIST changes: +MIRALAX PA17 GM/Dose PO
== END 2021-10-04 | disposition home or self-care (01) ==
LOC: MKS.ESL.PT
DX: M25.512 Pain in left shoulder (principal)

== ENCOUNTER 2021-10-15 09:23 | Day surgery (SDC) | payer MEDICAID ==
[2021-10-15] VITALS (18 sets, daily range): BP systolic 75–129; BP diastolic 32–71; PULSE 62–98; TEMP 98.1–98.4
[~2021-10-15] VITALS: Ht 172.8 cm; Wt 104.0 kg
[2021-10-15 10:40] LABS: HEMOGLOBIN 11.8 g/dl (12.5-16.0); MEAN CELL VOLUME 96 fl (80.0-100.0); MEAN CORPUSCULAR HEMOGLOBIN 32 pg (27-31); MEAN CORPUSCULAR HGB CONC 33 g/dl (33.0-37.0); MEAN PLATELET VOLUME 9.3 fl (7.4-10.4); PLATELET COUNT 180 K/mm3 (130-400); RED BLOOD COUNT 3.75 M/mm3 (4.10-5.30); REDCELL DISTRIBUTION WIDTH-CV 12.7 % (11.5-14.5)
[2021-10-15] MEDS ORDERED: ZESTRIL 10MG10 MG PO (10:45)
[2021-10-15] MEDS ORDERED: SEROQUEL 200MG200 MG PO (10:48)
[2021-10-15 10:49] LABS: INR 1.1 (0.8-3.0); PROTHROMBIN TIME 12.1 SECONDS (9.7-12.8)
[2021-10-15] MEDS ORDERED: D3-5050000 IU PO (10:49)
[2021-10-15] MEDS ORDERED: WELLBUTRIN SR150 M1 PO (10:50)
[2021-10-15 10:51] LABS: PARTIAL THROMBOPLASTIN TIME 30.7 SECONDS (26.0-37.0)
[2021-10-15] MEDS ORDERED: EFFEXOR 75M75 MG/TAB PO (10:51)
[2021-10-15] MEDS ORDERED: DEPAKOTE 250MG250 MG PO (10:52)
[2021-10-15] MEDS ORDERED: IMDUR 60MG60 MG/TAB PO ×2 (10:53→10:55)
[2021-10-15 11:10] LABS: CALCIUM 8.6 mg/dL (8.4-10.2); CREATININE, serum 1.27 mg/dL (0.57-1.11); POTASSIUM 4.7 mmol/L (3.5-4.5)
--- NOTE | 2021-10-15 12:45 | NUR ---
SEE MERGE FOR ALL MEDICATION ADMINISTRATION TIMES/DOSAGES AND INTRA/POST PROCEDURE SEDATION ASSESSMENTS.
--- NOTE | 2021-10-15 15:15 | NUR ---
Patient arrived to Medical room 352 at 1450, she is alert/oriented, initially she was hypotensive/lightheaded and nauseated, we removed fem stop and held some manual pressure, blood pressures have recovered and patient feeling better, we feel she had a vagal response and we have notified who is going to come evaluate patient, I gave 4mg of Zofran and opened her IVF wide open
--- NOTE | 2021-10-15 15:30 | NUR ---
Patient feeling much better, vital signs stable, up to assess patient, we are going to leave Femstop off / monitor closely and hold manual pressure for any oozing, pedal pulses are strong and palpable, pattient is feeling much better now, right femoral access site dressing has some drainage but unchagned from earlier and site is soft without sign of significant bleeding or hematoma, will continue to monitor closely
--- NOTE | 2021-10-15 16:55 | NUR ---
patient having a lot of right sided flank and lower back pain, fem site is soft with no obvious sign of hematoma or bleeding, blood pressures are soft again and notifeid , we will check h&h and CT abd/pelvis to r/o retroperitoneal bleed, continue to monitor closely
--- NOTE | 2021-10-15 17:15 | NUR ---
we took patient to CT at this time by bed
[2021-10-15 18:01] LABS: MEAN CELL VOLUME 98 fl (80.0-100.0); MEAN CORPUSCULAR HGB CONC 32 g/dl (33.0-37.0); MEAN PLATELET VOLUME 9.4 fl (7.4-10.4); PLATELET COUNT 226 K/mm3 (130-400); RED BLOOD COUNT 3.14 M/mm3 (4.10-5.30); REDCELL DISTRIBUTION WIDTH-CV 12.8 % (11.5-14.5)
[2021-10-15 18:03] LABS: HEMATOCRIT 30.8 % (37.0-47.0); HEMOGLOBIN 9.8 g/dl (12.5-16.0); MEAN CORPUSCULAR HEMOGLOBIN 31 pg (27-31)
--- NOTE | 2021-10-15 18:18 | NUR ---
discussed CT result with , there is a prominent retroperiotoneal bleed, He has sent out transfer requests to and a couple other facilities, blood pressures are still soft but holding stable, will contiune to monitor
--- NOTE | 2021-10-15 19:03 | NUR ---
Discussed plan of care with again on the phone, bedrest overnight, Fentanyl IV x 1 for pain, continue to monitor B/P and Access site, hemaglobin 9.8, IVF at 100ml/hr started
--- NOTE | 2021-10-15 19:55 | NUR ---
RIGHT FEMORAL SITE DRESSING SOILED WITH LIGHT BLOOD, PT REPORTS PAIN 10/10, PT IN [place] POSITION. LEGS MILDLY ELEVATED TO EASE STRAIN. SOFT BP'S NOTED, 100' OVER 50'S. THIS NURSE WILL CONTINUE TO MONITOR PT.
--- NOTE | 2021-10-15 22:20 | NUR ---
PT TRANSPORTED TO CT VIA BED BY MEDICAL STAFF AT 2200 AND BACK ON FLOOR AT 0.
[2021-10-16 00:03] LABS: MEAN CELL VOLUME 95 fl (80.0-100.0); MEAN CORPUSCULAR HGB CONC 34 g/dl (33.0-37.0); MEAN PLATELET VOLUME 9.8 fl (7.4-10.4); PLATELET COUNT 181 K/mm3 (130-400); RED BLOOD COUNT 2.79 M/mm3 (4.10-5.30); REDCELL DISTRIBUTION WIDTH-CV 12.7 % (11.5-14.5)
[2021-10-16 00:07] LABS: HEMATOCRIT 26.6 % (37.0-47.0); MEAN CORPUSCULAR HEMOGLOBIN 32 pg (27-31)
[2021-10-16 00:28] VITALS: BP 91/61; PULSE 76; TEMP 98.4
--- NOTE | 2021-10-16 01:28 | NUR ---
AT 2330 PT WAS PROVIDED ZOFRAN SHE CONTINUES W EMESIS. THIS NURSE WILL F/U.
--- NOTE | 2021-10-16 01:28 | NUR ---
AT 0100 EMS ARRIVES TO TRANSPORT PT TO [facility], THIS NURSE PROVIDED REPORT AND INFORMED EMS PT BP REMAINS SOFT, PT CONTINUES TO REPORT SEVERE PAIN TO BACK AND SOME MILD CHEST PAIN THAT DOES NOT SUSTAIN. R FEMORAL SITE REMAINS UNCHANGED FROM EARLIER ASSESMENT. TELE MONITOR TAKEN OFF AND PLACED ON CAROUSEL IN NURSES STATION. PT FAMILY UPDATED OF TRANSFER. PT TRANSPORTED WITH BELONGINGS. AT 0130 THIS NURSE CONTACTED [facility] AND GAVE REPORT TO SAGAR BONNER.
--- NOTE | 2021-10-16 03:10 | NUR ---
AT 0215 THIS NURSE REALIZED PTS MEDICATIONS WERE LEFT BEHIND IN MED ROOM THAT INCLUDED HER WALLET AND HORIZONTAL BORING MILL OPERATOR, CHILDREN LIBRARIAN NOTIFIED.
== END 2021-10-15 23:30 | disposition short-term general hospital (02) ==
LOC: COL.CAR 09:23 → MEDICAL 14:58 → COL.CAR 23:30
PROVIDERS: Internal Medicine Cardiovascular Disease
DX: I25.110 Atherosclerotic heart disease of native coronary artery with unstable angina pectoris (principal); I12.9 Hypertensive chronic kidney disease with stage 1 through stage 4 chronic kidney disease, or unspecified chronic kidney disease; N18.9 Chronic kidney disease, unspecified; Z20.822 Contact with and (suspected) exposure to COVID-19
CPT/HCPCS: OP; C1760; C1769; C1874; C1887; C1894; C9600; J0153; J0583; J1644; J2250; J2405; J3010; J7030; Q9967

== ENCOUNTER 2021-12-03 07:43 | Outpatient (CLI) | payer MEDICAID ==
[~2021-12-03 07:43] MED LIST changes: +D3-5050000 IU PO; +EFFEXOR 75M75 MG/TAB PO; +IMDUR 60MG60 MG/TAB PO; +WELLBUTRIN SR150 M1 PO; +ZESTRIL 10MG10 MG PO
[2021-12-03 09:02] VITALS: BP 113/78; PULSE 70; TEMP 98.6
[2021-12-03] MEDS ORDERED: EFFEXOR-XR150 MG PO (09:32)
[2021-12-03] MEDS ORDERED: ROXICODONE 55 MG/TAB PO (09:33)
--- NOTE | 2021-12-03 11:00 | NUR ---
Pt escorted to radiology dept by commercial kitchen service technician. She is ambulatory. INT remains in place, and will be DC'd by radiology following CT scan. Pt will discharge from radiology dept.
== END 2021-12-03 13:00 | disposition home or self-care (01) ==
LOC: EUO 07:43 → COL.RAD 08:30 → EUO 09:00 → COL.RAD 11:00 → EUO 13:00
DX: N18.30 Chronic kidney disease, stage 3 unspecified (principal); K92.2 Gastrointestinal hemorrhage, unspecified; K44.9 Diaphragmatic hernia without obstruction or gangrene
CPT/HCPCS: J7040

== ENCOUNTER → 2021-12-17 | Outpatient (CLI) | payer MEDICAID ==
[~2021-12-17] MED LIST changes: +EFFEXOR-XR150 MG PO; +ROXICODONE 55 MG/TAB PO
== END ==
LOC: COL.RAD 12:35
DX: I67.82 Cerebral ischemia (principal); I63.9 Cerebral infarction, unspecified; G43.009 Migraine without aura, not intractable, without status migrainosus; Z87.898 Personal history of other specified conditions

== ENCOUNTER 2021-12-29 09:12 | Emergency (ER) | payer MEDICAID ==
[~2021-12-29] VITALS: Ht 175.3 cm; Wt 100.0 kg
[2021-12-29 09:12] VITALS: TEMP 98
[2021-12-29] MEDS ORDERED: FLEXERIL 1010 MG/TAB PO (09:36)
[2021-12-29] MEDS ORDERED: NORCO 325 MG-51 TAB PO (09:36)
[2021-12-29] MEDS ORDERED: PREDNISONE20 MG PO (09:36)
[2021-12-29 11:00] VITALS: BP 122/86; PULSE 78
== END 2021-12-29 11:00 | disposition home or self-care (01) ==
LOC: COL.ER 09:12
DX: M54.16 Radiculopathy, lumbar region (principal)
CPT/HCPCS: J7512

== ENCOUNTER → 2022-01-29 | Outpatient (CLI) | payer MEDICAID ==
[~2022-01-29] MED LIST changes: +FLEXERIL 1010 MG/TAB PO; +NORCO 325 MG-51 TAB PO; +PREDNISONE20 MG PO
== END ==
LOC: COL.CARD 09:13
DX: Z87.898 Personal history of other specified conditions (principal)

== ENCOUNTER 2022-02-10 11:01 | Emergency (ER) | payer MEDICAID ==
[~2022-02-10] VITALS: Ht 175.3 cm; Wt 100.0 kg
[2022-02-10 12:40] VITALS: BP 158/85; PULSE 78; TEMP 97.8
== END 2022-02-10 12:41 | disposition home or self-care (01) ==
LOC: COL.ER 11:01
DX: S00.83XA Contusion of other part of head, initial encounter (principal); S10.93XA Contusion of unspecified part of neck, initial encounter; S40.012A Contusion of left shoulder, initial encounter; M54.50 Low back pain, unspecified; W18.39XA Other fall on same level, initial encounter

== ENCOUNTER → 2022-02-20 10:09 | Outpatient (RCR) | payer MEDICAID | END | disposition home or self-care (01) | LOC: MKS.ESL.PT 10-05 13:00 | DX: R20.2 Paresthesia of skin (principal); R20.0 Anesthesia of skin; M79.602 Pain in left arm ==

== ENCOUNTER 2022-03-13 12:27 | Emergency (ER) | payer MEDICAID ==
[~2022-03-13] VITALS: Ht 175.3 cm; Wt 100.5 kg
[2022-03-13 12:38] VITALS: TEMP 97.8
[2022-03-13 15:23] VITALS: BP 118/69; PULSE 93
== END 2022-03-13 15:23 | disposition home or self-care (01) ==
LOC: COL.ER 12:27
DX: M54.50 Low back pain, unspecified (principal); M54.2 Cervicalgia; G89.29 Other chronic pain

== ENCOUNTER 2022-03-26 15:00 | Outpatient (RCR) | payer MEDICAID | END 2022-04-03 | disposition home or self-care (01) | LOC: MKS.ESL.PT | DX: M54.50 Low back pain, unspecified (principal) ==

== ENCOUNTER 2022-04-23 15:00 | Outpatient (RCR) | payer MEDICAID | END 2022-05-04 | disposition home or self-care (01) | LOC: MKS.ESL.PT | DX: M54.50 Low back pain, unspecified (principal) ==

== ENCOUNTER → 2022-04-25 | Outpatient (CLI) | payer MEDICAID | LOC: COL.RAD 07:02 | DX: M47.812 Spondylosis without myelopathy or radiculopathy, cervical region (principal); M47.816 Spondylosis without myelopathy or radiculopathy, lumbar region ==

== ENCOUNTER 2022-05-14 13:53 | Outpatient (RCR) | payer MEDICAID | END 2022-06-04 | disposition home or self-care (01) | LOC: MKS.ESL.PT | DX: M54.50 Low back pain, unspecified (principal) ==

== ENCOUNTER 2022-07-18 09:52 | Day surgery (SDC) | payer MEDICAID ==
[~2022-07-18] VITALS: Ht 175.3 cm; Wt 105.7 kg
[2022-07-18] MEDS ORDERED: RANEXA 500MG T500 MG PO (11:14)
[2022-07-18] MEDS ORDERED: ASPIRIN E.C. 8181 MG PO (11:14)
[2022-07-18] MEDS ORDERED: DESYREL 100MG100 MG PO (11:20)
[2022-07-18 12:29] VITALS: BP 168/98; PULSE 89; TEMP 97.6
[2022-07-18 12:55] VITALS: BP 168/98; PULSE 85; TEMP 97.4
--- NOTE | 2022-07-18 12:55 | NUR ---
PATIENT RETURNS TO ROOM 3 VIA CART. ASSIST X 2 TO CHAIR. SHE IS ALERT AND ORIENTED. REQUESTS CHOCOLATE PUDDING AND COKE. FRIEND AT BEDSIDE. VITAL SIGNS ARE NORMAL FOR HER, B/P WAS ELEVATED DURING PROCEDURE WELL. WILL CONTINUE TO MONITOR.
[2022-07-18 13:10] VITALS: BP 159/92; PULSE 83
--- NOTE | 2022-07-18 13:10 | NUR ---
PATIENT IS DOING WELL. DENIES ANY NAUSEA OR PAIN AFTER EATING. VITAL SIGNS WNL, B/P IS STILL ELEVATED BUT IT WAS ELEVATED DURING THE PROCEDURE. DOCTOR AT BEDSIDE. IV DISCONTINUED. WILL CONTINUE TO MONITOR.
[2022-07-18 13:25] VITALS: BP 141/100; PULSE 84
--- NOTE | 2022-07-18 13:25 | NUR ---
PATIENT IS READY FOR DISCHARGE. DISCHARGE INSTRUCTIONS REVIEWED. FINAL SET OF VITALS ARE GOOD, B/P CONTINUES TO BE ELEVATED BUT SHE STATES IT IS BECAUSE SHE IS ANXIOUS TO GO HOME. WILL DISCHARGE ONCE SHE IS DRESSED.
== END 2022-07-18 13:35 | disposition home or self-care (01) ==
LOC: SDCO 09:52
DX: K59.00 Constipation, unspecified (principal); K44.9 Diaphragmatic hernia without obstruction or gangrene; K21.00 Gastro-esophageal reflux disease with esophagitis, without bleeding
CPT/HCPCS: J2704; J7030

== ENCOUNTER 2022-12-30 00:08 | Observation (INO) | payer MEDICAID ==
[~2022-12-30] VITALS: Ht 172.7 cm; Wt 100.0 kg
[~2022-12-30 00:08] MED LIST changes: +ASPIRIN E.C. 8181 MG PO; +DESYREL 100MG100 MG PO
[2022-12-30 00:24] LABS: BASO % 0.6 % (0.0-2.0); EOS # 0.1 K/mm3 (0.0-0.7); EOS % 1.1 % (0.0-4.0); GRAN # 3.4 K/mm3 (1.4-6.5); GRAN % 65.2 % (42.2-75.2); HEMATOCRIT 40.6 % (37.0-47.0); HEMOGLOBIN 13.8 g/dl (12.5-16.0); LYMPH # 1.1 K/mm3 (1.2-3.4); MEAN CELL VOLUME 87 fl (80.0-100.0); MEAN CORPUSCULAR HEMOGLOBIN 30 pg (27-31); MEAN CORPUSCULAR HGB CONC 34 g/dl (33.0-37.0); MONO # 0.6 K/mm3 (0.1-0.6); MONO % 11.9 % (1.7-9.3); PLATELET COUNT 206 K/mm3 (130-400); RED BLOOD COUNT 4.66 M/mm3 (4.10-5.30); REDCELL DISTRIBUTION WIDTH-CV 14.3 % (11.5-14.5)
[2022-12-30 00:40] LABS: BILIRUBIN,TOTAL 0.9 mg/dL (0.2-1.2); C-REACTIVE PROTEIN 0.24 mg/dL (0.00-0.50); CALCIUM 9.2 mg/dL (8.4-10.2); CREATININE, serum 1.52 mg/dL (0.57-1.11); TOTAL PROTEIN 7.3 gm/dL (6.2-8.1)
[2022-12-30 00:48] LABS: POTASSIUM 2.8 mmol/L (3.5-4.5)
[2022-12-30 04:06] LABS: COLLECTION METHOD CLEAN CATCH
[2022-12-30 04:14] LABS: PH 5.5 (5.0-8.5); URINE APPEARANCE Hazy (CLEAR/HAZY); URINE COLOR Yellow (YELLOW); URINE GLUCOSE Negative (NEGATIVE); URINE KETONE 1+ (NEGATIVE); URINE NITRATE Negative (NEGATIVE); URINE PROTEIN(semi-quant) Negative (NEGATIVE); URINE UROBILINOGEN 0.2 E.U/dL (0.2-1.0)
[2022-12-30 04:15] LABS: URINE BLOOD Negative (NEGATIVE)
[2022-12-30 04:16] LABS: MUCOUS Present (NOT PRESENT); URINE BACTERIA None Seen /hpf (NONE SEEN); URINE RBC 0-2 /hpf (0-2)
[2022-12-30] MEDS ORDERED: LASIX 20MG TABL20 MG PO (04:24)
[2022-12-30 07:07] LABS: CALCIUM 8.4 mg/dL (8.4-10.2); CREATININE, serum 1.39 mg/dL (0.57-1.11); MAGNESIUM 1.7 mg/dL (1.6-2.6); POTASSIUM 3.4 mmol/L (3.5-4.5)
[2022-12-30 13:54] VITALS: BP 135/80; PULSE 81; TEMP 98.5
--- NOTE | 2022-12-30 14:09 | NUR ---
Patient arrived to the unit from ER via chair at 1347. Patient alert and oriented. Patient has history of heart problems, and per patient has had 5 heart attacks and 9 stents. Patient reports of shortness of breath on exertion and is on 02 2L N/C. Assessment completed and patient oriented to room and the use of call luque.
--- NOTE | 2022-12-30 15:50 | NUR ---
Patient had meduim amount of soft brown bowel movement with bright red around the stools. Patient states she has history of hemorrhoids, and hasn't had bowel movement for the past [address] Gill Dolores informed and states she will order suppository for patient.
[2022-12-30 15:53] VITALS: BP 126/62; PULSE 79; TEMP 97.8
[2022-12-30 19:53] VITALS: BP 102/62; PULSE 85; TEMP 97.3
[2022-12-30 22:47] VITALS: BP 137/98; PULSE 95; TEMP 98.6
[2022-12-31] VITALS (11 sets, daily range): BP systolic 100–128; BP diastolic 56–89; PULSE 77–111; TEMP 97.6–98
--- NOTE | 2022-12-31 01:47 | NUR ---
SHIFT REPORT FROM CHRIS KEITH. PATIENT IN BED ON ROOM ENTRY. ALERT AND ORIENTED. HS MEDS PER EMAR. IV STARTED TO R AC. PATIENT REFUSED ADDITIONAL DOSES OF IV POTASSIUM, POTASSIUM RECHECKED AND CAME BACK 3.2, PROTOCOL FOLLOWED AND PER PATIENT REQUEST PO TABLETS GIVEN, HOWEVER PATIENT REFUSED LAST DOSE AFTER HAVING DIFFICULTY WITH SECOND DOSE. PATIENT NPO AT THIS TIME AND CANNOT HAVE EFFER K TABS, STILL REFUSING IV POTASSIUM. X1 ASSIST TO BATHROOM THROUGHOUT THE NIGHT.
[2022-12-31 06:57] LABS: BASO % 0.5 % (0.0-2.0); EOS # 0.1 K/mm3 (0.0-0.7); EOS % 1.5 % (0.0-4.0); GRAN # 4.8 K/mm3 (1.4-6.5); GRAN % 72.3 % (42.2-75.2); HEMATOCRIT 37.6 % (37.0-47.0); HEMOGLOBIN 12.3 g/dl (12.5-16.0); LYMPH # 1.1 K/mm3 (1.2-3.4); LYMPH % 16.3 % (20.0-51.0); MEAN CELL VOLUME 91 fl (80.0-100.0); MEAN CORPUSCULAR HEMOGLOBIN 30 pg (27-31); MEAN CORPUSCULAR HGB CONC 33 g/dl (33.0-37.0); MEAN PLATELET VOLUME 10.1 fl (7.4-10.4); MONO # 0.6 K/mm3 (0.1-0.6); MONO % 9.2 % (1.7-9.3); PLATELET COUNT 197 K/mm3 (130-400); RED BLOOD COUNT 4.14 M/mm3 (4.10-5.30); REDCELL DISTRIBUTION WIDTH-CV 14.5 % (11.5-14.5)
[2022-12-31 07:13] LABS: CALCIUM 8.7 mg/dL (8.4-10.2); CHOLESTEROL RISK RATIO 3.2; CREATININE, serum 1.35 mg/dL (0.57-1.11); POTASSIUM 3.5 mmol/L (3.5-4.5)
--- NOTE | 2022-12-31 08:00 | NUR ---
Patient laying in bed, A&Ox4. VSS. IV CDI. NPO for a procedure. Reports a headache. Call light within reach. Bed alarm on
[2022-12-31] MEDS ORDERED: LASIX 40MG TABL40 MG PO (14:35)
--- NOTE | 2022-12-31 14:56 | NUR ---
NILE met with the patient to discuss discharge plan. The patient lives alone in [place]. She reports normally being independent with ADLs, but may need some more help now. She has a cane and walker. The patient's primary care provider is Razia Vallejo APRN at [facility]. The patient states that she does not have a DPOA-HC and was not interested in completing one at this time. She states that she is not and has three children, but they live out of state and she is not close or talk to them. She states that her parents are . She has her sister, Radha Lyle (ph#[phone]), as her next of kin and person to contact. Radha lives in [place]. The patient plans to return home upon discharge. OT recommends a tub chair and toilet riser and possible home health. The patient has Medicaid and it does not cover home health PT/OT. NILE also verified with [facility] that Medicaid does not pay for a tub bench or toilet riser. NILE informed the patient of this and informed her of the resource: [facility]. They can provide donated equipment and look at screening her to find out if her insurance would approve some in home came. The patient verbalized understanding. NILE provided her with the contact information to [facility] and [facility] Resource Guide. NILE discussed doing outpatient PT/OT instead. The patient was interested in this and would prefer to get set up at [facility]. She states that she has a friend or utilizes her Medicaid Transportation services for rides to appointments. The hospitalist team is ready to discharge the patient today. NILE contacted [facility] and secured the patient a PT appointment on 01/06 at 0900 and an OT appointment on 01/06 at 1000. NILE notified the ammunition assembly laborer of the appointment and faxed the orders to [facility]. No additional needs at this time.
--- NOTE | 2022-12-31 16:00 | NUR ---
Discharge paperwork reviewed with the patient. Patient verbalized an understanding to follow doctors orders. IV removed, tip intact. Gauze and coban appled. Patient transfered by wheelchair to awaiting vehicle. No further needs expressed.
== END 2022-12-31 16:00 | disposition home or self-care (01) ==
LOC: COL.ER 00:08 → SURG 08:25 → MEDICAL 12-31 06:00
PROVIDERS: Nurse Practitioner; Student in an Organized Health Care Education/Training Program; ADMIT Internal Medicine
DX: I25.10 Atherosclerotic heart disease of native coronary artery without angina pectoris (principal); I11.0 Hypertensive heart disease with heart failure; I50.9 Heart failure, unspecified; G47.00 Insomnia, unspecified; G40.909 Epilepsy, unspecified, not intractable, without status epilepticus; K64.9 Unspecified hemorrhoids; F32.A Depression, unspecified; F41.9 Anxiety disorder, unspecified; Z79.82 Long term (current) use of aspirin; Z79.899 Other long term (current) drug therapy; Z79.01 Long term (current) use of anticoagulants; Z20.822 Contact with and (suspected) exposure to COVID-19
CPT/HCPCS: A9500; G0378; J1644; J1940; J2405; J2785; J3480; J7030

== ENCOUNTER 2023-01-20 09:24 | Outpatient (RCR) | payer MEDICAID ==
[~2023-01-20 09:24] MED LIST changes: +LASIX 20MG TABL20 MG PO; +LASIX 40MG TABL40 MG PO
== END 2023-02-01 | disposition home or self-care (01) ==
LOC: WSPT
DX: R07.9 Chest pain, unspecified (principal)

== ENCOUNTER → 2023-01-22 | Outpatient (CLI) | payer MEDICAID | LOC: MC.RAD 13:00 | DX: Z12.31 Encounter for screening mammogram for malignant neoplasm of breast (principal); N63.10 Unspecified lump in the right breast, unspecified quadrant ==

== ENCOUNTER 2023-01-23 09:57 | Outpatient (RCR) | payer MEDICAID | END 2023-02-01 | disposition home or self-care (01) | LOC: WSOT | DX: I50.9 Heart failure, unspecified (principal) ==

== ENCOUNTER → 2023-07-24 | Day surgery (SDC) | payer MEDICAID ==
[~2023-07-24] VITALS: Ht 172.7 cm; Wt 96.8 kg
[~2023-07-24] MED LIST changes: +PROTONIX 40MG T40 MG PO; +ZESTRIL 20MG TA20 MG PO
[2023-07-24 08:20] VITALS: BP 123/80; PULSE 83; TEMP 97
[2023-07-24 09:10] VITALS: BP 102/70; PULSE 79; TEMP 97
[2023-07-24 09:25] VITALS: BP 102/59; PULSE 78
[2023-07-24 09:40] VITALS: BP 116/73; PULSE 83
== END ==
LOC: SDCO 07:08
DX: K62.1 Rectal polyp (principal); K92.1 Melena; K59.00 Constipation, unspecified; G47.33 Obstructive sleep apnea (adult) (pediatric)
CPT/HCPCS: J2704; J7120

== ENCOUNTER 2023-08-31 10:45 | Day surgery (SDC) | payer MEDICAID ==
[2023-08-31] VITALS (7 sets, daily range): BP systolic 97–133; BP diastolic 63–95; PULSE 70–92; TEMP 96.9–97.3
[~2023-08-31] VITALS: Ht 175.3 cm; Wt 98.0 kg
[2023-08-31 12:21] LABS: TRICYCLIC ANTIDEPRESS URINE POSITIVE
--- NOTE | 2023-08-31 12:49 | NUR ---
PT HAS HELP PLAVIX AND ASPIRIN SINCE 08/24/23. PT HAS NOT HAD ANY HOME MEDICATIONS TODAY. FLEETS ENEMA TO BE GIVEN ORDERED.
[2023-08-31 12:55] LABS: CALCIUM 8.9 mg/dL (8.4-10.2); CREATININE, serum 1.21 mg/dL (0.57-1.11); POTASSIUM 4.2 mmol/L (3.5-4.5)
--- NOTE | 2023-08-31 13:19 | NUR ---
1150 PT AMBULATORY TO BAY 3 WITH STEADY GAIT, BREATHING EVEN AND UNLABORED. PT IS ALERT AND ORIENTED. CONSENTS REVIEWED AND SIGNED BY PT. URINE SPECIMEN OBTAINED AND TAKEN TO LAB. IV ESTABLISHED. BLOOD SPECIMEN OBTAINED AND TAKEN TO THE LAB. ENEMA GIVEN WITH GOOD RESULTS. LR INFUSING VIA GRAVITY AT KVO. CALL LIGHT IN REACH. WARM BLANKETS PROVIDED.
[2023-08-31] MEDS ORDERED: NORCO 325 MG-51 TAB PO (15:18)
--- NOTE | 2023-08-31 16:02 | NUR ---
PATIENT RETURNED TO ROOM 3 VIA CART, DROWSY AND RESPONSIVE TO PHYSICAL STIMULI. BREATHING REGULAR AND UNLABORED ON 6L VIA FACE MASK. SKIN WARM AND DRY. NURSE HANDOFF COMPLETED BEDSIDE. REPORT FROM YASMIN ERNANDEZ AND SAGAR EDWARDS IN ROOM. SEE CHART FOR VITAL SIGNS. MINIMAL BLOODY DRAINAGE TO PAD IN MESH UNDERWEAR.
--- NOTE | 2023-08-31 16:15 | NUR ---
PATIENT ALERT AND ORIENTED X3. STATES "MY BOTTOM FEELS SORE, NOT REALLY PAIN". DENIES NAUSEA AND SHORTNESS OF BREATH. BREATHING REGULAR AND UNLABORED ON ROOM AIR. PATIENT HAD PEPSI AND A MUFFIN. BOTH FOOD AND DRINK TOLERATED WELL. CALL LIGHT IN REACH.
--- NOTE | 2023-08-31 17:10 | NUR ---
1657: PATIENT AMBULATED TO RESTROOM WITH STEADY GAIT AND VOIDED WITHOUT DIFFICULTY. MINIMAL BLOODY DRAINAGE PRESENT TO RECTAL AREA. 1705: DISCHARGE TEACHING COMPLETED WITH PRINTED EDUCATION AND INSTRUCTIONS SENT HOME WITH PATIENT. FOLLOW UP APPOINTMENT DATE, TIME AND LOCATION COMMUNICATED TO PATIENT. PATIENT VERBALIZED UNDERSTANDING OF EDUCATION. IV REMOVED. GAUZE AND COBAN PLACED OVER SITE. PATIENT DISCHARGED HOME WITH FRIEND, ILYA, TRANSPORT.
== END 2023-08-31 17:10 | disposition home or self-care (01) ==
LOC: SDCO 10:45
PROVIDERS: Nurse Anesthetist, Certified Registered
DX: C20 Malignant neoplasm of rectum (principal); K62.5 Hemorrhage of anus and rectum; Z79.01 Long term (current) use of anticoagulants
CPT/HCPCS: J2405; J2704; J3010; J7120

== ENCOUNTER 2023-12-28 11:49 | Day surgery (SDC) | payer MEDICAID ==
[~2023-12-28] VITALS: Ht 174 cm; Wt 91.9 kg
[~2023-12-28 11:49] MED LIST changes: +LR 1,000 ML IV SCH
[2023-12-28] MEDS ORDERED: Sod Phosphates Rectal Enema 133 ML bottle RC SCH (12:00)
[2023-12-28] MEDS ORDERED: RT ADVAIR HFA 1112 G IH (13:01)
[2023-12-28] MEDS ORDERED: AJOVY AUTO225 MG/1.5 SQ (13:03)
[2023-12-28] MEDS ORDERED: UBRELVY100 MG PO (13:04)
[2023-12-28] MEDS ORDERED: HYDROcodone/Acetaminophen 7.5-325 MG TAB PO PRN (14:45)
[2023-12-28] MEDS ORDERED: Ondansetron 4 MG/2 ML VIAL IV PRN ×2 (14:45→15:30)
[2023-12-28] MEDS ORDERED: Midazolam 2 MG/2 ML VIAL ONE (15:06)
[2023-12-28] MEDS ORDERED: Gelatin Sponge,Absorbable Size 12-7 SPONGE TP ONE (15:11)
[2023-12-28] MEDS ORDERED: Thrombin Human (Recombinant) 5,000 UNITS VIAL TP ONE (15:11)
[2023-12-28] MEDS ORDERED: Lidocaine 1% w EPI (1:100,000) 10 ML Multi-Dose VIAL SQ ONE (15:11)
[2023-12-28] MEDS ORDERED: fentaNYL 50 MCG/ML 2 ML VIAL IV PRN (15:30)
[2023-12-28] MEDS ORDERED: hydrALAZINE 20 MG/ML 1 ML VIAL IV PRN (15:30)
[2023-12-28] MEDS ORDERED: HYDROmorphone 2 MG/1 ML VIAL IV PRN (15:30)
[2023-12-28 15:34] VITALS: BP 130/74; PULSE 86; TEMP 98.3
[2023-12-28 15:49] VITALS: BP 132/65; PULSE 79
[2023-12-28 16:04] VITALS: BP 122/83; PULSE 86
[2023-12-28 16:19] VITALS: BP 129/72; PULSE 83
--- NOTE | 2023-12-28 19:53 | NUR ---
1535: PATIENT TO BAY 4 FROM OR. REPORT RECEIVED FROM SAGAR CARDENAS AND DARIUS HOFFMAN. PATIENT ALERT AND ORIENTED. DENIES PAIN AND NAUSEA. NO DRAINAGE NOTED. PATIENT DENIES FOOD AND DRINK AT THIS TIME. VSS. BREATHING EVEN AND UNLABORED. SPO2 96% ON 4L O2 VIA MASK. WARM BLANKET PROVIDED. NO FURTHER NEEDS NOTED AT THIS TIME. RESTING IN COT. CALL LIGHT IN REACH. 1549: ALERT AND ORIENTED. VSS. O2 REMOVED AT THIS TIME. BREATHIN EVEN AND UNLABORED. SPO2 98% ON RA. PATIENT DENIES PAIN AND REQUESTING PEPSI AND MUFFIN. NO FURTHER NEEDS NOTED. RESTING IN COT. CALL LIGHT IN REACH.
--- NOTE | 2023-12-28 19:59 | NUR ---
1604: PATIENT ALERT AND ORIENTED. TOLERATING PEPSI AND MUFFIN WITH NO C/O NAUSEA. PATIENT DENIES PAIN. NO FURTHER NEEDS NOTED. RESTING IN COT. CALL LIGHT IN REACH.
--- NOTE | 2023-12-28 20:01 | NUR ---
1619: ALERT AND ORIENTED. VSS. BREATHING EVEN AND UNLABORED ON RA. PATIENT REQUESTING TO TALK TO DR. GOSS. SR. GOSS NOTIFIED AND SPOKE WITH PATIENT VIA PHONE. IV DC'S BY SAGAR SHAW AT THIS TIME. VALERIA ASSISTED PATIENT WITH DRESSSING. PATIENT AMBULATED TO BATHROOM. 1630: PATIENT BACK FROM BATHROOM. DISCHARGE EDUCATION COMPLETED AT THIS TIME. PATIENT INSTRUCTED ON ROSETTA-CARE AND ROSETTA BOTTLE GIVEN TO PATIENT. WOUND ASSESSED AT THIS TIME. MINIMAL TO NO DRAINAGE NOTED. PATIENT INSTRUCTED TO CALL DR. GOSS IF LARGE AMOUNT OF DRAINAG IS NOTED. PATIENT STATED UNDERSTANDING OF HOME AND FOLLOW-UP CARE. QUESTIONS WELCOMED AND ANSWERED. DISCHARGE PAPERWORK GIVEN TO PATIENT. 1640: PATIENT OFF UNIT PER WHEELCHARI. DISCHARGED TO HOME WITH FAMILY FRIEND PER PERSONAL VEHICLE.
[2023-12-29 13:00] VITALS: BP 134/87; PULSE 61; TEMP 97.8
== END 2023-12-28 16:40 | disposition home or self-care (01) ==
LOC: SDCO 11:49
DX: D01.3 Carcinoma in situ of anus and anal canal (principal); C21.0 Malignant neoplasm of anus, unspecified; G47.33 Obstructive sleep apnea (adult) (pediatric); I12.9 Hypertensive chronic kidney disease with stage 1 through stage 4 chronic kidney disease, or unspecified chronic kidney disease; Z79.01 Long term (current) use of anticoagulants; K62.5 Hemorrhage of anus and rectum; N18.30 Chronic kidney disease, stage 3 unspecified
CPT/HCPCS: J2250; J2704; J7120

== ENCOUNTER 2024-03-27 00:26 | Inpatient (IN) | payer MEDICAID ==
[~2024-03-27] VITALS: Ht 175.3 cm; Wt 86.5 kg
[2024-03-27] VITALS (9 sets, daily range): BP systolic 98–127; BP diastolic 60–81; PULSE 60–94; TEMP 97.5–98.2
[~2024-03-27 00:26] MED LIST changes: +AJOVY AUTO225 MG/1.5 SQ; -LR 1,000 ML IV SCH; +PRINIVIL20 MG PO; +RT ADVAIR HFA 1112 G IH; +UBRELVY100 MG PO; -ZESTRIL 20MG TA20 MG PO
[2024-03-27 01:21] LABS: BASO % 0.4 % (0.0-2.0); EOS % 0.7 % (0.0-4.0); GRAN # 2.9 K/mm3 (1.4-6.5); GRAN % 65.2 % (42.2-75.2); HEMATOCRIT 38.6 % (37.0-47.0); HEMOGLOBIN 12.1 g/dl (12.5-16.0); LYMPH # 0.9 K/mm3 (1.2-3.4); LYMPH % 20.9 % (20.0-51.0); MEAN CELL VOLUME 98 fl (80.0-100.0); MEAN CORPUSCULAR HEMOGLOBIN 31 pg (27-31); MEAN CORPUSCULAR HGB CONC 31 g/dl (33.0-37.0); MEAN PLATELET VOLUME 10.1 fl (7.4-10.4); MONO # 0.5 K/mm3 (0.1-0.6); MONO % 11.7 % (1.7-9.3); PLATELET COUNT 145 K/mm3 (130-400); RED BLOOD COUNT 3.93 M/mm3 (4.10-5.30); REDCELL DISTRIBUTION WIDTH-CV 14.1 % (11.5-14.5)
[2024-03-27 01:24] LABS: INR 1.1 (0.8-3.0); PROTHROMBIN TIME 11.5 SECONDS (9.7-12.8)
[2024-03-27 01:27] LABS: PARTIAL THROMBOPLASTIN TIME 27.6 SECONDS (26.0-37.0)
[2024-03-27 01:33] LABS: ALBUMIN 3.2 g/dL (3.5-5.0); BILIRUBIN,TOTAL 0.9 mg/dL (0.2-1.2); CALCIUM 9.7 mg/dL (8.4-10.2); CREATININE, serum 1.35 mg/dL (0.57-1.11); POTASSIUM 4.1 mEq/L (3.5-4.5)
[2024-03-27 01:38] LABS: TROPONIN-I 0.011 ng/mL (0.00-0.033)
[2024-03-27] MEDS ORDERED: Iohexol 300 - 100 ML VIAL IV ONE (02:28)
[2024-03-27] MEDS ORDERED: NS 100 ML IV SCH (02:29)
[2024-03-27] MEDS ORDERED: Acetaminophen 325 MG TAB PO PRN (04:15)
[2024-03-27] MEDS ORDERED: LR 1,000 ML IV SCH (04:15)
[2024-03-27 04:47] LABS: TSH w REFLEX 0.387 uIU/mL (0.350-4.940)
[2024-03-27] MEDS ORDERED: WELLBUTRIN XL300 M1 PO (04:47)
[2024-03-27] MEDS ORDERED: PROAIR HFA0.09 MG/AC IH (04:54)
[2024-03-27] MEDS ORDERED: Albuterol 0.083% Neb Soln 2.5 MG/3 ML UD IH PRN (05:00)
--- NOTE | 2024-03-27 06:05 | NUR ---
PATIENT ADMITTED TO ROOM 351 BROUGHT UP BY ED PCTCONNIE. PATIENT AXO X4 AND VS ARE: 127/66, 95PULSE AND 96 % O2 ON RA, TEMP 97.8. MED REC COMPLETE, HOWEVER, PATIENT CANNOT RECALL LAST TAKEN OR DOSE SHE SAYS HER PHARMACY, [facility], PLACES ALL HER MEDS IN BLISTER PACK TO HELP HER REMEMBER MED ADMINISTERATION TIMES. LIVIA WITH ORTHOPEDICS HAS BEEN NOTIFIED OF CONSULT. PATIENT ORIENTED TO ROOM. LR RUNNING AT 75 ML/HR. CAM BOOT ON LT LEG. DIFFUSE BRUISING NOTED THROUGH OUT BODY. SHOULDERS, GROIN, HIPS, FOREARMS AND SACCRUM. NO BRUISING OR LACERATIONS NOTED ON HEAD. SMALL ABRASION NOTED ON LT FLANK. PATIENT C/0 OF 9/10 PAIN ONLY WHEN AFFECT LIMB IS TOUCHED OR MOVED. STATES NO NEEDS AT THIS TIME.
[2024-03-27 06:28] LABS: COLLECTION METHOD CLEAN CATCH
[2024-03-27 06:46] LABS: URINE APPEARANCE CLOUDY (CLEAR/HAZY); URINE BLOOD 1+ (NEGATIVE); URINE COLOR YELLOW (YELLOW); URINE GLUCOSE NEGATIVE (NEGATIVE); URINE KETONE TRACE (NEGATIVE); URINE NITRATE NEGATIVE (NEGATIVE); URINE PROTEIN(semi-quant) NEGATIVE (NEGATIVE)
[2024-03-27 06:49] LABS: TRICYCLIC ANTIDEPRESS URINE POSITIVE (NEGATIVE)
[2024-03-27 06:52] LABS: MUCOUS PRESENT (NOT PRESENT); URINE BACTERIA RARE /hpf (NONE SEEN); URINE RBC NONE SEEN /hpf (0-2); URINE WBC 0-2 /hpf (0-2)
[2024-03-27] MEDS ORDERED: Formoterol 20 MCG,Budesonide 0.5 MG IH SCH (07:00)
[2024-03-27] MEDS ORDERED: Isosorbide Mononitrate CR (24-HR) 30 MG TAB PO SCH (07:30)
[2024-03-27] MEDS ORDERED: amLODIPine 5 MG TAB PO SCH (09:00)
[2024-03-27] MEDS ORDERED: buPROPion XL (24-HR) 150 MG TAB PO SCH (09:00)
[2024-03-27] MEDS ORDERED: Clopidogrel 75 MG TAB PO SCH (09:00)
[2024-03-27] MEDS ORDERED: Ranolazine ER 500 MG TAB PO SCH (09:00)
[2024-03-27] MEDS ORDERED: Divalproex 250 MG Delayed Release TAB PO SCH (09:00)
[2024-03-27] MEDS ORDERED: Lisinopril 10 MG TAB PO SCH (09:00)
--- NOTE | 2024-03-27 09:13 | NUR ---
Patient resting in bed with lights off, and breakfast tray infront. States pain on her feet 10/10, norco provided. Morning meds given. Boot on left fracture. Pt states she do not want to eat, just sleep. Assessment completed, no further needs at this time. Call light within reach.
[2024-03-27] MEDS ORDERED: NORVASC 5MG5 MG/TAB PO (09:55)
[2024-03-27] MEDS ORDERED: LIPITOR 80MG80 MG PO (09:55)
--- NOTE | 2024-03-27 13:11 | NUR ---
Patient assisted to the restroom by JUN Meneses and this RN. Pt able to stand up and use walker for support while standing, but struggling giving steps and leaving all her weight un us. Pt was assisted to the restrom and urinated. When comming back 3 ELECTRICAL DEVELOPMENT ENGINEER where with her to support her. In the process Pt heart reate raised to 140's and started feeling dizzy. Once in bed VS 138/88, O2 sat 90% RA, HR 125 T97.8. RESP 18. After some resting her HR went down to 93. Dr. Gill came from next door to check on her. No further orders. Pt right now stable and eating lunch. Continue monitoring.
--- NOTE | 2024-03-27 15:17 | NUR ---
SW met with patient to complete intake and discuss discharge planning. Patient reports that she lives alone in her home in [place]. Patient PCP is Razia Vallejo APRN and pharmacy of choice is [facility]. Patient has DPOA on file and her brother is listed and confirmed as her NOK ( Sylvain Mendes [phone]) Patient currently uses a walker in the home, she is not ambulate and limited with ADLs due to this. Discharge plan: tbd
[2024-03-27] MEDS ORDERED: Acetaminophen 325 MG TAB PO SCH (16:15)
[2024-03-27] MEDS ORDERED: QUEtiapine 100 MG TAB PO SCH (21:00)
[2024-03-27] MEDS ORDERED: Atorvastatin 80 MG TAB PO SCH (21:00)
[2024-03-28] VITALS (18 sets, daily range): BP systolic 103–136; BP diastolic 68–85; PULSE 71–100; TEMP 97.5–97.9
--- NOTE | 2024-03-28 05:20 | NUR ---
ASSESSMENT COMPLETE FOR AUTO TECHNICIAN. PT UP TO THE BEDSIDE COMMODE SEVERAL TIMES NIGHT, NEEDING 2 PERSON ASSISTANCE. PT HAD A LOT OF DIFFICULTY STANDING UP AND WALKING WITHOUT A LOT ASSISTANCE. PT DENIED GENERAL PAIN, CHEST PAIN, PALPITATIONS, SOB, N,V,D OR DIZZINESS. LEGS ELEVATED. SCD TO RIGHT LEG. BOOT ON LEFT. FALL PRECAUTIONS IN PLACE. BED ALARM ON. CALL LIGHT WITHIN REACH.
[2024-03-28 07:22] LABS: BASO % 0.6 % (0.0-2.0); EOS # 0.1 K/mm3 (0.0-0.7); EOS % 1.5 % (0.0-4.0); GRAN % 59.2 % (42.2-75.2); HEMATOCRIT 32.7 % (37.0-47.0); HEMOGLOBIN 10.8 g/dl (12.5-16.0); LYMPH # 0.9 K/mm3 (1.2-3.4); LYMPH % 26.8 % (20.0-51.0); MEAN CELL VOLUME 95 fl (80.0-100.0); MEAN CORPUSCULAR HEMOGLOBIN 31 pg (27-31); MEAN CORPUSCULAR HGB CONC 33 g/dl (33.0-37.0); MEAN PLATELET VOLUME 10.1 fl (7.4-10.4); MONO # 0.4 K/mm3 (0.1-0.6); MONO % 10.7 % (1.7-9.3); PLATELET COUNT 114 K/mm3 (130-400); RED BLOOD COUNT 3.44 M/mm3 (4.10-5.30); REDCELL DISTRIBUTION WIDTH-CV 14.2 % (11.5-14.5)
[2024-03-28 07:42] LABS: CALCIUM 9.1 mg/dL (8.4-10.2); CREATININE, serum 1.11 mg/dL (0.57-1.11); POTASSIUM 4.1 mEq/L (3.5-4.5)
[2024-03-28 08:13] LABS: CHOLESTEROL RISK RATIO 2.4
--- NOTE | 2024-03-28 08:25 | NUR ---
Patient sleeping in bed, a little difficult to awake. Alert and oriented to self. Reoriented. Getting fluids LR 75 MLS PER HR. Denies any pain or discomfort. Boot on left leg. Telemetry in place. States she does not want to eat what she has in her tray. BG in 60's. She drank her orange juice and ate some fruit. Assessment completed. Meds given. No further needs at this time. Call light within reach. Bed alarm on.
--- NOTE | 2024-03-28 09:10 | NUR ---
Patient BG IN 'S now.
--- NOTE | 2024-03-28 10:27 | NUR ---
Initial visit; Patient thanked Managing Broker for looking in on her and offering God's blessings and to keep her in Managing Broker's prayer.
[2024-03-28] MEDS ORDERED: Regadenoson 0.08 MG/ML 5 ML SYRINGE IV SCH (12:40)
--- NOTE | 2024-03-28 14:41 | NUR ---
Last Sorter discussed recommendation for post acute rehab and options available to her with her insurance. Patient is agreeable to have referrals sent to [facility] and [facility]. SW contacted both facilities and gave referral.
--- NOTE | 2024-03-28 15:35 | NUR ---
CHINO Krishnan. [facility].
--- NOTE | 2024-03-28 23:32 | NUR ---
patient lying in bed, alert and oriented x3, occasional forgetfullness noted. denies chest pain and shortness of breath. pt reports feeling dizzy with ambulation, transfer to bedside commode and back in bed with gait belt x1 assist, unsteady gait. IV in with LR running at 75 ml/hr and IV in RAC patent, both sites are CDI. pt has no further needs, questions or concerns at this time. fall precautions in place, call light within reach. will continue to monitor.
[2024-03-29] VITALS (16 sets, daily range): BP systolic 93–134; BP diastolic 47–85; PULSE 55–95; TEMP 97.5–98.5
[2024-03-29 06:44] LABS: CALCIUM 8.4 mg/dL (8.4-10.2); CREATININE, serum 0.96 mg/dL (0.57-1.11); POTASSIUM 3.9 mEq/L (3.5-4.5)
[2024-03-29 07:18] LABS: MEAN CELL VOLUME 95 fl (80.0-100.0); MEAN CORPUSCULAR HGB CONC 33 g/dl (33.0-37.0); MEAN PLATELET VOLUME 10.2 fl (7.4-10.4); PLATELET COUNT 121 K/mm3 (130-400); REDCELL DISTRIBUTION WIDTH-CV 14.3 % (11.5-14.5)
[2024-03-29 07:20] LABS: HEMOGLOBIN 9.6 g/dl (12.5-16.0); MEAN CORPUSCULAR HEMOGLOBIN 31 pg (27-31)
[2024-03-29 07:21] LABS: HEMATOCRIT 29.3 % (37.0-47.0)
[2024-03-29 07:37] LABS: BAND 2 % (0-10); EOSINOPHIL 1 % (0-4); LYMPHOCYTE 17 % (20.0-51.0); METAMYELOCYTE 2 % (0-0); NEUTROPHILS 71 % (42.0-75.2); PLATELET ESTIMATE DECREASED (NORMAL)
--- NOTE | 2024-03-29 09:30 | NUR ---
Patient sitting up in chair, alert and oriented x 3, trying to send messages through her cellphone with the help of DEPUTY OF COUNTER INTELLIGENCE. Dr. Krishnan just left room. Assessment completed, meds given. Boot on left foot. No further needs at this time. Call light within reach.
--- NOTE | 2024-03-29 14:30 | NUR ---
Patient resting in chair, watching TV. denies any pain at this time. Asking for a cooler deliverer for her phone.
--- NOTE | 2024-03-29 15:22 | NUR ---
Beside report completed with virginia KEITH, call light within reach, insertion site reviewed, telemetry box inplace, lilibeth keith denies concerns.
--- NOTE | 2024-03-29 15:25 | NUR ---
Patient got her loop recorder placed in room. Alert and oriented x 4, VSS. Dressing CDI.
--- NOTE | 2024-03-29 15:32 | NUR ---
Private Branch Exchange Service Advisor spoke with Carolyne, IPR Director who met with patient earlier to discuss therapy expectations on IPR. Carolyne also advised they have submitted for auth.
--- NOTE | 2024-03-29 22:56 | NUR ---
Patient lying in bed, alert and oriented x4. denies chest pain and shortness of breath. IV in LH and RAC are patent, sites are CDI. cam boot on left foot, scd on RLE, RLE with nonpitting edema, scattered bruising to back and left hip, left chest incision site with gauze dressing, CDI. pthas no further needs, questions or concerns at this time. fall precautions in place, unsteady gait with pivot transfer to bedside commode and back in bed x1 assist. call light within reach. will continue to monitor.
[2024-03-30 03:17] VITALS: BP 126/85; PULSE 76; TEMP 97.5
[2024-03-30 04:00] VITALS: BP_SYST 126
[2024-03-30 06:17] LABS: HEMOGLOBIN 10.8 g/dl (12.5-16.0); MEAN CELL VOLUME 95 fl (80.0-100.0); MEAN CORPUSCULAR HEMOGLOBIN 31 pg (27-31); MEAN CORPUSCULAR HGB CONC 33 g/dl (33.0-37.0); MEAN PLATELET VOLUME 10.1 fl (7.4-10.4); PLATELET COUNT 142 K/mm3 (130-400); RED BLOOD COUNT 3.45 M/mm3 (4.10-5.30); REDCELL DISTRIBUTION WIDTH-CV 14.2 % (11.5-14.5)
[2024-03-30 06:21] LABS: HEMATOCRIT 32.8 % (37.0-47.0)
[2024-03-30 06:34] LABS: CREATININE, serum 1.13 mg/dL (0.57-1.11); POTASSIUM 3.9 mEq/L (3.5-4.5)
[2024-03-30 07:09] LABS: BAND 5 % (0-10); BASOPHIL 1 % (0-2); BURR CELLS 1+; EOSINOPHIL 5 % (0-4); LYMPHOCYTE 27 % (20.0-51.0); NEUTROPHILS 55 % (42.0-75.2); PLATELET ESTIMATE NORMAL (NORMAL); SCHISTOCYTES 1+
--- NOTE | 2024-03-30 07:30 | NUR ---
Patients WBG 56, result called from lab. Patient A&Ox4. VSS. IV CDI. Denies pain. Nurse provided pt with apple juice and assisted with 1a, gait belt and walker to the BSC. Patient back to bed and positioned for breakfast. Seizure precautions in place. Call light within reach. Bed alarm on. Cam boot lf leg, SCD right ;eg
[2024-03-30 08:11] VITALS: BP 141/85; PULSE 91; TEMP 97.5
--- NOTE | 2024-03-30 10:50 | NUR ---
Patient to discharge to [facility] today.
[2024-03-30] MEDS ORDERED: TYLENOL 500MG500 MG PO (11:45)
[2024-03-30] MEDS ORDERED: AMOXICILLIN 8751 TAB PO (11:46)
[2024-03-30 11:56] VITALS: BP 139/81; PULSE 99; TEMP 98
[2024-03-30] MEDS ORDERED: Acetaminophen 500 MG TAB PO SCH (14:00)
--- NOTE | 2024-03-30 14:35 | NUR ---
Report called to Yari KEITH, patient taken by wheelchair to room 339. Personal belongings with the patient.
== END 2024-03-30 14:35 | DRG 563 ==
LOC: COL.ER 00:26 → MEDICAL 05:18
PROVIDERS: Emergency Medicine; Nurse Practitioner Family; ADMIT Internal Medicine
DX: S62.307A Unspecified fracture of fifth metacarpal bone, left hand, initial encounter for closed fracture (principal); K52.9 Noninfective gastroenteritis and colitis, unspecified; I10 Essential (primary) hypertension; E78.5 Hyperlipidemia, unspecified; I25.10 Atherosclerotic heart disease of native coronary artery without angina pectoris; Z86.73 Personal history of transient ischemic attack (TIA), and cerebral infarction without residual deficits; N18.9 Chronic kidney disease, unspecified; D64.9 Anemia, unspecified; D72.819 Decreased white blood cell count, unspecified; G47.00 Insomnia, unspecified; F41.9 Anxiety disorder, unspecified; F32.A Depression, unspecified
CPT/HCPCS: A9500-JZ; C1764; J2543; J2785; J7120; L4386; Q9967

== ENCOUNTER 2024-03-30 10:09 | Inpatient (IN) | payer MEDICAID ==
[~2024-03-30] VITALS: Ht 172.7 cm; Wt 81.6 kg
[~2024-03-30 10:09] MED LIST changes: +PROAIR HFA0.09 MG/AC IH; +WELLBUTRIN XL300 M1 PO
[2024-03-30] MEDS ORDERED: TYLENOL 500MG500 MG PO (11:45)
[2024-03-30] MEDS ORDERED: AMOXICILLIN 8751 TAB PO (11:46)
--- NOTE | 2024-03-30 14:50 | NUR ---
pt transferred from Medical room to [facility]. pt a&ox4 resting in bed. denies pain. admission assessment complete. vss. CAM boot to LLE. med rec complete. pt oriented to room. call light in reach. fall precautions in place. no needs at this time.
[2024-03-30] MEDS ORDERED: Naloxone 0.4 MG/ML VIAL IV PRN ×2 (15:30→16:30)
[2024-03-30] MEDS ORDERED: Acetaminophen 325 MG TAB PO PRN ×2 (15:30→16:30)
[2024-03-30] MEDS ORDERED: Sennosides/Docusate 8.6-50 MG TAB PO PRN ×2 (15:30→16:30)
[2024-03-30] MEDS ORDERED: Polyethylene Glycol 3350 17 GM PDS PO PRN ×2 (15:30→16:30)
[2024-03-30] MEDS ORDERED: Docusate Sodium 100 MG CAP PO PRN ×2 (15:30→16:30)
--- NOTE | 2024-03-30 15:32 | NUR ---
This nurse called Freddy with PT about the patients missing cell phone when in 351. Freddy reported that he took the phone to find a factory maintenance technician, but then handed the phone back to to the patient. Nursing staff has been looking for the phone, but unable to find
[2024-03-30] MEDS ORDERED: Acetaminophen 500 MG TAB PO PRN (16:00)
[2024-03-30] MEDS ORDERED: Albuterol 0.083% Neb Soln 2.5 MG/3 ML UD IH PRN (16:00)
[2024-03-30] MEDS ORDERED: Amoxicillin/Clavulanate K+ 875/125 MG TAB PO SCH (17:00)
[2024-03-30 18:49] VITALS: BP 113/77; PULSE 88; TEMP 98.1
[2024-03-30 19:00] VITALS: BP_SYST 113
[2024-03-30] MEDS ORDERED: Formoterol 20 MCG,Budesonide 0.5 MG IH SCH (19:00)
--- NOTE | 2024-03-30 19:46 | NUR ---
RECEIVED CHANGE OF SHIFT REPORT FROM DAY SHIFT NURSE. PATIENT RESTING IN BED WITH EYES CLOSED, BREATHING NONLABORED/EVEN. PATIENT DID NOT WAKE DURING NURSE ROUNDING. EXIT ALARM ON, CALL LIGHT WITHIN REACH.
[2024-03-30] MEDS ORDERED: Atorvastatin 80 MG TAB PO SCH (21:00)
[2024-03-30] MEDS ORDERED: QUEtiapine 100 MG TAB PO SCH (21:00)
[2024-03-30] MEDS ORDERED: Divalproex 250 MG Delayed Release TAB PO SCH (21:00)
[2024-03-30] MEDS ORDERED: Ranolazine ER 500 MG TAB PO SCH (21:00)
[2024-03-31 05:42] VITALS: BP 151/93; PULSE 91; TEMP 97.6
[2024-03-31 07:00] VITALS: BP_SYST 151
[2024-03-31] MEDS ORDERED: Isosorbide Mononitrate CR (24-HR) 30 MG TAB PO SCH (07:00)
--- NOTE | 2024-03-31 07:29 | NUR ---
CHANGE OF SHIFT REPORT GIVEN TO DAY SHIFT NURSE, ADEBAYO. PATIENT RESTING MOST OF NIGHT WITH NO REPORT COMPLAINTS OR NEEDS REPORTED. OBSERVED PATIENT WITH SOMEWHAT OF UNSTEADY GAIT, EASILY FATIGUED WITH AMBULATING TO AND FROM BATHROOM, NO REPORTED COMPLAINTS OF SHORTNESS OF AIR WITH EXERTION. CAM BOOT CONTINUES TO LEFT FOOT, OBSERVED PATIENT ABLE TO WEIGHT BEAR TO LEFT FOOT WITH AMBULATION. BED EXIT ALARM ON WITH CALL LIGHT WITHIN PATIENT'S REACH THROUGH THE NIGHT.
[2024-03-31] MEDS ORDERED: Lisinopril 20 MG TAB PO SCH (09:00)
[2024-03-31] MEDS ORDERED: buPROPion XL (24-HR) 150 MG TAB PO SCH (09:00)
[2024-03-31] MEDS ORDERED: Clopidogrel 75 MG TAB PO SCH (09:00)
--- NOTE | 2024-03-31 10:42 | NUR ---
Pt resting in bed with no pain at this time, A/o x4, 1 assist with walker and gait belt to the bathroom with medium BM. During shower with OT pt had a small amount of emesis. OT states pt starting coughing and throwing up with no warning clear sputum. Pt denies at nausea prior to emesis. Pt tolerating deit well. CAM boot to left foot remains in place. No needs at this time, will continue to monitor.
--- NOTE | 2024-03-31 15:56 | NUR ---
embroidery worker met with pt to complete intake assessment for IPR. She reports to live alone in [place]. She sees Razia Vallejo for PCP needs and obtains medications from [facility] with no difficulties. She reports to be independent with ADLS and uses a FWW and cane for DME. She has no stairs in her home. She utilizes transportation with her insurance. She reports her contact as her brother, Sylvain [phone]. Pt does not have a DPOA-HC, but reports she has three daughters she is estranged from. She repeatedly states she does not want anything to do with her daughters, and Sylvain should make all decisions. She does not want him to bear the financial obligation though. SW explained DPOA-HC and the purpose. She was agreeable to complete one listing her brother. NILE and Maren Oh witnessed signature. Pt signed and was provided copies and original. NILE discussed family meeting and she declines wanting to invite anyone, she states her brother works and does not want to bother him. NILE informed Director Carolyne who will still plan to meet with pt for family meeting at 10:15am 04/06. Discharge Plan: re-eval
[2024-03-31 16:58] VITALS: BP 114/71; PULSE 85; TEMP 97.5
[2024-03-31 19:00] VITALS: BP_SYST 114
--- NOTE | 2024-03-31 21:30 | NUR ---
Patient resting in bed. Assissted patient to bathroom and back to bed x1 assisst with walker. States she has some pain in her foot when walking but denies pian meds. Assessment complete. Needs met. Call light and personal items in reach. Bed in low position and bed alarm on.
[2024-04-01 05:44] VITALS: BP 106/70; PULSE 81; TEMP 97.5
[2024-04-01 07:10] VITALS: BP_SYST 106
--- NOTE | 2024-04-01 08:30 | NUR ---
Assessment completed. Pt A/O x4 but forgetful at times. During beside report, noc shift nurse mentioned patient had an episode of dizziness with jerking- this nurse doesn't observe any jerking and patient denies dizziness. OT reported patient had small amount of bile (yellow) emesis after showering today. Pt refused breakfast. Cam walker to LLE. Fall precautions in place.
--- NOTE | 2024-04-01 15:11 | NUR ---
icebox worker received a call from Mak at [facility] reporting they provide non-skilled services to pt. NILE faxed updates. SW met with pt to assess for any needs. SW verified if she had [facility]. She confirmed this and reports to want to continue with them upon discharge. Pt reports she has some pain that is being managed by , but "tylenol is not cutting it." SW advised she continue to let and RN know. No further needs. Discharge Plan: re-eval
[2024-04-01 16:32] VITALS: BP 115/77; PULSE 86; TEMP 98
--- NOTE | 2024-04-01 16:33 | NUR ---
Pt denies pain or needs at this time. Bedside report given to SAGAR Osorio.
--- NOTE | 2024-04-01 16:35 | NUR ---
Received bedside report from SAGAR Clemens. Call light in reach. Bed alarm on.
[2024-04-01 18:50] VITALS: BP_SYST 115
--- NOTE | 2024-04-01 20:00 | NUR ---
Patient resting in bed. Rates her pain at 10/10, prn pain meds given. Assissted patient to bathroom and back to bed. Assessment complete. Snack provided. Call light and personal items in reach. Bed in low positon and bed alarm on.
[2024-04-02 05:16] VITALS: BP 116/75; PULSE 80; TEMP 97.5
[2024-04-02 07:21] VITALS: BP_SYST 116
--- NOTE | 2024-04-02 09:12 | NUR ---
Pt resting in chair with no pain at this time. Weak gait to bathroom with SBA and walker. Tolerating deit well, CAM boot in place on left foot, loop recorder incision clean and dry with bandaid. Scattered bruising on upper and lower back. No needs at this time, will continue to monitor.
--- NOTE | 2024-04-02 17:02 | NUR ---
fat pressroom worker was notified by patient's nurse that patient and family were discussing updating patient's DPOA-HC. SW met with patient, her sister, , and another family member. Don was talking to patient about updating her DPOA-HC if she wanted to add her to the list. Patient stated "whatever she wants to do, but I have other plans." SW asked for clarification of what this means, patient/family explained that she did not want to bother her family members. SW asked if she could explain what a DPOA-HC is. Patient explained it was something where the person would make decisions for her. Patient then continued to go back and forth about what she wanted to do. SW explained at this time she did not feel comfortable updating the DPOA-HC that was completed two days ago as the patient was presenting with some confusion. Patient's sister explained she mainly wanted to be able to call the hospital and be able to get updates if needed. SW asked patient about this, patient confirmed she would like all three of her siblings to be able to call if needed. P# [phone] and Radha, P# [phone] and brother Sylvain. SW asked patient if she would like all of them present for the family meeting and she expressed if they could be present at least via telephone that would be preferred. SW discussed patient's current home situation. Patient reports she has [facility] for housekeeping and her director case through [facility], takes her to and from to get groceries and has [facility] appointments. Don expressed concern of patient properly caring for herself at home. SW explained they would continue to follow patient's care and would provide recommendations whether that would be home with home health (PT, OT, nursing), SNF or LTC. discussed AL as an option. oncology social worker explained they would be unable to transfer her to a new AL setting from the hospital but if the family was interested in this option they could speak with her and start asking around to the AL that patient would be interested in. Patient would prefer to return home if possible. SW explained she would continue to follow along. SW notified patient's nurse of the above information and put all of the siblings on the list to be able to receive information if needed. DPOA-HC remains Sylvain, can discuss updating when patient is less confused about the information.
[2024-04-02 18:23] VITALS: BP 107/72; PULSE 82; TEMP 97.6
[2024-04-02 18:40] VITALS: BP_SYST 107
[2024-04-03 06:10] VITALS: BP 118/82; PULSE 74; TEMP 97.5
[2024-04-03 06:50] VITALS: BP_SYST 118
--- NOTE | 2024-04-03 06:50 | NUR ---
Pt sleeping in bed. Call light in reach and bed alarm.
--- NOTE | 2024-04-03 08:20 | NUR ---
Pt laying in chair. Assessment complete. Pt stated feeling nauseous. Administered Zofran. Pt ambulated back to bed. Weak gait when initially standing, but improved with walking. Call light in reach and bed alarm on.
[2024-04-03] MEDS ORDERED: Mag/Al Hydrox/Simeth Susp 30 ML CUP PO SCH (16:30)
[2024-04-03 17:51] VITALS: BP 129/82; PULSE 85; TEMP 98.2
--- NOTE | 2024-04-03 17:55 | NUR ---
Pt reported nausea, offerred Zofran, Pt declined. Pt reported ABD feeling full and distended. Pt stated "feels like I have to poop." Pt attempted to have BM, unsuccessful. Offerred stool softner, Pt declined. No further needs. Call light in reach and bed alarm on.
[2024-04-03 19:19] VITALS: BP_SYST 129
--- NOTE | 2024-04-03 19:19 | NUR ---
RECEIVED CHANGE OF SHIFT REPORT FROM DAY SHIFT NURSE. PATIENT RESTING IN BED, EXIT ALARM ON, CALL LIGHT WITHIN PATIENT'S REACH.
--- NOTE | 2024-04-03 20:00 | NUR ---
PATIENT COOPERATIVE, ANSWERS QUESTIONS APPROPRIATELY IN CONVERSATION NURSING STAFF AT THIS TIME. REPORTS NAUSEA AND REASSURED PATIENT ANTINAUSEA MEDS ARE DUE TO BE GIVEN, PATIENT WITH NO FURTHER NEEDS OR COMPLAINTS VOICED, SEE MAR FOR MEDS GIVEN. PATIENT RESTING IN BED WITH EXIT ALARM ON, CALL LIGHT WITHIN PATIENT'S REACH.
[2024-04-04 05:42] LABS: HEMOGLOBIN 10.5 g/dl (12.5-16.0); MEAN CELL VOLUME 96 fl (80.0-100.0); MEAN CORPUSCULAR HEMOGLOBIN 31 pg (27-31); MEAN CORPUSCULAR HGB CONC 33 g/dl (33.0-37.0); MEAN PLATELET VOLUME 9.6 fl (7.4-10.4); PLATELET COUNT 151 K/mm3 (130-400); RED BLOOD COUNT 3.35 M/mm3 (4.10-5.30); REDCELL DISTRIBUTION WIDTH-CV 15.8 % (11.5-14.5)
[2024-04-04 05:52] VITALS: BP 111/74; PULSE 82; TEMP 97.6
[2024-04-04 06:05] LABS: CALCIUM 8.2 mg/dL (8.4-10.2); CREATININE, serum 1.02 mg/dL (0.57-1.11); POTASSIUM 4.1 mEq/L (3.5-4.5)
[2024-04-04 06:35] VITALS: BP_SYST 111
[2024-04-04 07:08] LABS: ANISOCYTOSIS 1+; BAND 3 % (0-10); LYMPHOCYTE 21 % (20.0-51.0); NEUTROPHILS 69 % (42.0-75.2); OVALOCYTES 1+; PLATELET ESTIMATE NORMAL (NORMAL)
[2024-04-04 07:09] LABS: BURR CELLS 1+
--- NOTE | 2024-04-04 07:28 | NUR ---
CHANGE OF SHIFT REPORT GIVEN TO DAY SHIFT NURSEDARIUS.
--- NOTE | 2024-04-04 07:30 | NUR ---
Pt awake, laying in bed with lights off. Breakfast at bedside. Pt does not complain of pain at this time. No other concerns. Call light within reach. Bed alarm on.
--- NOTE | 2024-04-04 09:09 | NUR ---
Pt awake and alert at time of assessment. Pt does not complain of pain at this time. This nurse assisted pt with ambulating to bathroom. Pt stated she had a "good bowel movement" last night, confirmed by shift supervisor nurse during morning shift report. Pt stated that she was concerned about making sure her appointments coming up were rescheduled. No other concerns at this time. Call light within reach. Bed alarm on.
--- NOTE | 2024-04-04 09:51 | NUR ---
[facility] NILE advised they faxed over some updates recently and will continue to, so the plan remains the same. NILE advised they would have a better understanding of her discharge plan on Thursday after the team meeting. Mak reports he will be out then and have another person call. NILE advised they will keep them udpated once they know the plan.
--- NOTE | 2024-04-04 12:41 | NUR ---
fabric lay out worker reviewed patient's notes, family meeting was scheduled for 04/06/24 at 10:15 am. Per the conversation on Thursday, social worker palliative care contacted , patient's sister, and notified her of the family meeting time. asked about the DPOA-HC after stating she had spoke with Sylvain and he was not wanting to be the DPOA. NILE explained at this time she was not going to update this form as patient kept saying on Thursday, "whatever Don wants." NILE explained that if they wanted to complete this outside of the hospital they are able to do so. asked whom determines when the DPOA-HC goes into effect, social worker palliative care explained that is something that the doctor would determine if she would need a psych consult to determine capacity. NILE explained at this time DPOA-HC would remain Sylvain but family can speak with Sylvain and he can make decisions with their assistance. understood and explained she would be able to be present for the family meeting via telephone on Thursday. NILE attempted to contact Sylvain, no answer. NILE contacted Radha, patient's sister, whom expressed she would be unable to attend the family meeting due to an appointment. Radha provided Sylvain's phone number as [phone]. NILE contacted Sylvain with this new number, no answer. NILE left voicemail. NILE received a return call from Sylvain. NILE explained family meeting is scheduled for Thursday at 10:15. Sylvain explained he would be able to attend via telephone. No questions or concerns at this time.
--- NOTE | 2024-04-04 15:07 | NUR ---
bench worker helper and Student, Starr, to briefly check in and remind her of the family meeting on Thursday at 10:15 am. Patient asked about what the family meeting is, hospital social worker explained what this meeting will be and that she has contacted her siblings. SW explained and Sylvain will be present for the meeting via telephone. No further questions or concerns at this time.
--- NOTE | 2024-04-04 15:35 | NUR ---
Admission QIM scores were reviewed by the team. Code of 3 chosen for toileting hygiene was determined by team discussion to be the most usual performance for this patient during the discharge assessment period. Code of 3 chosen for toilet transfers was determined by team discussion to be the most usual performance for this patient during the discharge assessment period. Code of 3 chosen for lying to sitting side of bed was determined by team discussion to be the most usual performance before interventions for this patient during the assessment period. Code of 3 chosen for sit to stand was determined by team discussion to be the most usual performance for this patient during the discharge assessment period. Code of 3 chosen for walking 10 feet was determined by team discussion to be the most usual performance for this patient during the discharge assessment period. Code of 3 chosen for walking 50 feet w/ 2 turns was determined by team discussion to be the most usual performance before interventions for this patient during the discharge assessment period.--Carolyne Macedo,
[2024-04-04 16:39] VITALS: BP 125/83; PULSE 95; TEMP 98
[2024-04-04 17:30] VITALS: BP_SYST 125
--- NOTE | 2024-04-04 19:16 | NUR ---
RECEIVED CHANGE OF SHIFT REPORT FROM DAY SHIFT NURSE. PATIENT RESTING IN BED, EXIT ALARM ON, CALL LIGHT WITHIN PATIENT'S REACH.
--- NOTE | 2024-04-04 20:00 | NUR ---
CAM BOOT IN PLACE TO LEFT LOWER LEG. PATIENT DENIES CHEST PAIN/SHORTNESS OF BREATHE/NAUSEA AT THIS TIME. DENIES ANY NEEDS OR CONCERNS CURRENTLY.
[2024-04-05 05:32] VITALS: BP 119/75; PULSE 88; TEMP 97.5
--- NOTE | 2024-04-05 06:56 | NUR ---
CHANGE OF SHIFT REPORT GIVEN TO DAY SHIFT NURSES, MEGHNA
[2024-04-05 07:00] VITALS: BP_SYST 119
--- NOTE | 2024-04-05 10:21 | NUR ---
PT AWAKE AND RESTING IN BED. SCHEDULED MEDS GIVEN PER eMAR. DENIES PAIN. BED ALARM ON AND CALL LIGHT WITHIN REACH.
--- NOTE | 2024-04-05 14:00 | NUR ---
PT'S CARDIOOLIGST'S OFFICE CALLED AND NOTIFIED THIS NURSE OF APPT CHANGE. NEW APPT ON 04/18 AT 1130. PT AWARE. INSTRUCTIONAL MATERIAL DIRECTOR CONFIRMED THAT SUTURES CAN BE REMOVED TODAY FROM PT'S LOOP RECORDER PLACEMENT ON 03/29. 2 SUTURES WERE REMOVED FROM LEFT SIDE OF PT'S CHEST AND COVERED WITH BANDAID. NO SIGNS OF INFECTION AT THE SITE. PT DENIED PAIN WITH PROCEDURE.
[2024-04-05 17:40] VITALS: BP 129/84; PULSE 94; TEMP 97.8
[2024-04-05 19:00] VITALS: BP_SYST 129
[2024-04-06 05:15] VITALS: BP 117/66; PULSE 75; TEMP 97.4
[2024-04-06 06:40] VITALS: BP_SYST 117
--- NOTE | 2024-04-06 07:29 | NUR ---
Pt resting comfortably in bed. Call light within reach. Bed alarm on. No concerns at this time.
--- NOTE | 2024-04-06 09:05 | NUR ---
Pt awake and in bed, eating breakfast during med pass/assessment. Pt does not complain of pain at this time. No other concerns. Pt reported that her nausea has been decreasing in frequency at this time. Bed alarm on. Call light within reach.
--- NOTE | 2024-04-06 11:36 | NUR ---
structural metal worker and SW Student attended family meeting with patient, and Sylvain (via telephone) and IPR team. Patient has made improvement but it is recommended patient go to LTC upon discharge at least until her boot is removed and her cognition has improved as she has had some confusion. SW discussed these recommendations, patient became tearful as she did not want to lose her apartment. NILE explained that she may lose her apartment as her income would go to the nursing facility upon admission. spoke with patient about this and that they would see how she does after she gets her boot off and maybe she could return to her apartment. Patient is agreeable to LTC referrals. NILE explained she would send to the local facilities but if they are unable to accept with her insurance she would send to facilities around [place]. Patient is agreeable to this. NILE explained she would keep the family updated on the accepting facilities so they can stay involved. No further questions or concerns at this time. NILE secure emailed LTC referral to [facility] and [facility]. Discharge plan: LTC - pending accepting facility
--- NOTE | 2024-04-06 14:58 | NUR ---
Social work student faxed referral to [facility], [facility], [facility], [facility], [facility], and [facility].
--- NOTE | 2024-04-06 15:53 | NUR ---
tin recovery worker and NILE Student attended the IPR team conference to discuss patient s progress and potential discharge date. Patient was agreeable to LTC, healthcare social worker was working on referrals for her. SW was notified that [facility] and [facility] both declined patient at this time. NILE and NILE Student met with patient and reviewed the IPR team conference notes. SW provided a copy of the notes. NILE explained [facility] and [facility] are unable to accept at this time. NILE provided the Medicare.gov list of options and explained they have sent to [place], [facility], [facility], [facility], [facility], [facility], [facility] and [facility]. SW discussed any other options she would want to send to maybe near [place] where her sister lives. Patient stated she wanted to think about it. NILE met with patient and Carolyne, IPR director. Patient expressed she would like to look at facilities around the [facility] where her brother lives. NILE explained she will send those referrals. NILE Student faxed referrals to [facility], [facility], [facility], [facility] and [facility]. Discharge plan: LTC - pending facility
[2024-04-06 18:39] VITALS: BP 134/87; PULSE 93; TEMP 98
[2024-04-06 19:00] VITALS: BP_SYST 134
--- NOTE | 2024-04-06 20:50 | NUR ---
Patient resting in bed. Denies any pain at this time. Needs met. Assessment complete. Call light and personal items in reach. Bed in low position and bed alarm on.
[2024-04-07 05:39] VITALS: BP 134/84; PULSE 76; TEMP 97.5
[2024-04-07 07:00] VITALS: BP_SYST 134
--- NOTE | 2024-04-07 08:30 | NUR ---
Patient sitting up in bed, just finished to get ready for therapy. Alert and oriented, denies any pain at this time. CAM boot on left foot. Assessment completed, meds given. No further needs at this time. Call light within reach.
[2024-04-07 18:54] VITALS: BP 119/78; PULSE 89; TEMP 97.7
[2024-04-07 19:00] VITALS: BP_SYST 119
--- NOTE | 2024-04-07 19:07 | NUR ---
RECEIVED CHANGE OF SHIFT REPORT FROM DAY SHIFT NURSE. PATIENT RESTING IN BED, EXIT ALARM ON, CALL LIGHT WITHIN REACH OF PATIENT.
--- NOTE | 2024-04-07 23:38 | NUR ---
PATIENT AMBULATED TO BATHROOM BUT REPORTED FEELING WEAK AND SLIGHTLY DIZZY INITIALLY. PATIENT BACK TO BED FROM BATHROOM PER W/C WITH NO FURTHER REPORTS OF DIZZINESS OR WEAKNESS. DENIES ANY NEEDS OR COMPLAINTS WHEN BACK IN BED. EXIT ALARM ON, CALL LIGHT WITHIN PATIENT'S REACH.
[2024-04-08 05:23] VITALS: BP 113/78; PULSE 79; TEMP 97.5
[2024-04-08 06:30] VITALS: BP_SYST 113
--- NOTE | 2024-04-08 07:08 | NUR ---
CHANGE OF SHIFT REPORT GIVEN TO DAY SHIFT NURSEMARCIA. PATIENT RESTING IN BED WITH EXIT ALARM ON, CALL LIGHT WITHIN PATIENT'S REACH.
--- NOTE | 2024-04-08 08:47 | NUR ---
SHIFT ASSESSMENT COMPLETE. VSS. PATIENT AWAKE IN BED FINISHING BREAKFAST. ALL MORNING MEDS GIVEN ORDEERED. PATIENT EXPRESSED FEELING VERY TIRED TODAY DUE TO NOT GETTING MUCH SLEEP LAST NIGHT AND NOT REALLY UP FOR THERAPY TODAY. EXPRESSSED UNDERSTANDING AND ADVISED PATIENT AFTER THERAPY TODAY SHE CAN NAP UNINTERUPTED HOPEFULLY. PATIENT HAS NO OTHER REQUEST AT THIS TIME. BED ALARM ON AND CALL LIGHT IN REACH.
--- NOTE | 2024-04-08 14:23 | NUR ---
sill worker was notified [facility] is unable to accept patient at this time. NILE contacted [facility] whom is still reviewing. SW left a voicemail for [facility]. The social work manager for [facility] was not in the office today. [facility] is currently reviewing the referral. [facility] is unable to accept as patient is under the age of 64[address] [facility] in [place] recommended calling back on Thursday. [facility] is unable to accept as patient is under the age of 64. [facility] is unable to accept due to patient being under the age of 64. SW left voicemail for [facility] in [place]. SW was notified [facility], [facility] and [facility] are able to accept patient. SW met with patient and reviewed the options with Medicare.gov information. Patient declined [facility] but is [facility] and [facility]. Patient wanted her siblings, Sylvain and 's input. NILE completed CARE Assessment with patient. NILE contacted Sylvain and reviewed the Medicare.gov information with him on both facilities. Sylvain stated out of the two he would chose [facility]. NILE contacted and reviewed the Medicare.gov information with her on both facilities and discussed Sylvain's decision. Don agreed out of these two facilities she would also choose [facility]. asked questions about patient's apartment and financial DPOA-HC. NILE explained they are unable to do a financial DPOA-HC they would need to complete outside of the hospital and explained she could contact patient's apartment complex to determine if they will allow her access to obtain her personal belongings. NILE met with patient and discussed this with her. Patient understood but was worried about her apartment and missing her [facility] appointment. NILE explained the facility would work with her to get her appointment re-scheduled. Patient is agreeable to go to [facility] on Thursday. NILE contacted [facility] and notified them of the patient's decision to move to their facility. NILE discussed patient's appointment at [facility] on the . The facility is uncertain if they can transport that day but they would look at their schedule and if it does not work, they will reschedule to fit their ability. They are going to submit to Medicaid to determine if they will allow some skilled rehab while at their facility. They expressed they are able to accept patient on Thursday but will call the social work manager Thursday morning for transportation time. SW notified [facility] and [facility] of patient's decision. Discharge plan: [facility]- [facility]
[2024-04-08 16:58] VITALS: BP 143/92; PULSE 75; TEMP 98.3
[2024-04-08 18:45] VITALS: BP_SYST 143
--- NOTE | 2024-04-08 19:00 | NUR ---
Patient resting in bed. Denies any pain or needs at this time. Assessment complete. Call light and personal items in reach. Bed in low position and bed in low position.
[2024-04-09 05:32] VITALS: BP 117/85; PULSE 76; TEMP 97.5
[2024-04-09 07:00] VITALS: BP_SYST 117
--- NOTE | 2024-04-09 07:30 | NUR ---
SHIFT ASSESSMENT COMPLETE. VSS. PATIENT AWAKE IN BED EATING BREAKFAST AND MAKING PHONE CALLS. ALL MORNING MEDS GIVEN ORDERED. PATIENT REQUESTING TO SEE SOCIAL WORK THIS AM, EXPRESSED UNDERSTANDING AND ADVISED PATIENT WHEN SOCIAL WORK GETS HERE THIS NURSE WILL LET THEM KNOW. PATIENT EXPRESSED UNDERSTANDING. PATIENT HAS NO REQUEST OR COMPLAINTS THIS AM. BED ALARM ON AND CALL LIGHT IN REACH.
--- NOTE | 2024-04-09 13:58 | NUR ---
SW received message from RN stating that patient is asking to speak with SW. SW entered room with patient relaxing on bed. Patient questioned "why do I have to go straight to that place. I need to go get money to pay my rent. I don't neglect my responsibility." SW discussed process of transfer to skilled nursing via facility transportation being direct from door to door and that their staff cannot take her to run her errands during transport. Encouraged patient that she can speak with facility once there to arrange to run her errands. Patient accepting of this information and stated "I'm a little nervous." Discussed adjustment to change with patient. Patient voiced understanding and was calm when SW left room. Discharge plan: LTC
[2024-04-09 16:20] VITALS: BP 111/70; PULSE 97; TEMP 97.8
[2024-04-09 19:37] VITALS: BP_SYST 111
--- NOTE | 2024-04-09 20:30 | NUR ---
PT A&O X4 LAYING IN BED. SHIFT ASSESSMENT COMPLETE & HS MEDS GIVEN. CAM BOOT TO LLE. PT DENYING PAIN OR N/V. PER REPORT PT HAS NOT HAD BM SINCE 04/04, GAVE PRN SENOKOT PER MAR. PT DENYING OTHER NEEDS. CALL LIGHT IN REACH & BED ALARM ON.
--- NOTE | 2024-04-10 05:17 | NUR ---
PT RESTING IN BED W/ UNLABORED RESP. NO C/O PAIN THROUGHOUT THE NIGHT. CALL LIGHT IN REACH & BED ALARM ON
[2024-04-10 05:20] VITALS: BP 92/63; PULSE 80; TEMP 98
[2024-04-10 07:22] VITALS: BP_SYST 92
--- NOTE | 2024-04-10 08:31 | NUR ---
NILE faxed clinical updates to [facility] in [place] for planned discharge tomorrow Discharge plan: LTC
--- NOTE | 2024-04-10 08:39 | NUR ---
PATIENT SITTING UP IN BED EATING BREAKFAST. ALERT AND ORIENTED. SHIFT ASSESSMENT COMPLETE. MEDICATIONS GIVEN PER MAR. DENIES PAIN OR DISCOMFORT. PATIENT WANTS TO TAKE NAP. ALL NEEDS MET. CALL LIGHT WITHIN REACH.
--- NOTE | 2024-04-10 12:09 | NUR ---
THIS NURSE WAS TOLD BY ANOTHER NURSE THAT PATIENT IS COMPLAINING OF HER STOMACH HURTING. THIS NURSE WENT TO PATIENT ROOM AND ASKED HER ABOUT HER STOMACH PAIN. PATIENT SAID "I DON'T REALLY HAVE A STOMACH ACHE, I JUST WANTED TO TALK TO YOU." PATIENT IS TEARFUL ABOUT GOING [facility]. THIS NURSE LISTENED TO PATIENT CONCERNS AND PROVIDED POSITIVE FEEDBACK. PATIENT THANKED THIS NURSE FOR SITTING AND TALKING TO HER. WILL MONITOR
[2024-04-10 16:19] VITALS: BP 125/81; PULSE 95; TEMP 98.3
[2024-04-10 19:21] VITALS: BP_SYST 125
--- NOTE | 2024-04-10 19:30 | NUR ---
PT AWAKE AND RESTING IN BED. ASSISTED TO TOILET. PT HAD LARGE BM AND VOIDING YELLOW URINE. SCHEDULED MEDS GIVEN PER eMAR. NO COMPLAINTS OF NAUSEA. DENIES PAIN. NO FURTHER CONCERNS AT THIS TIME. BED ALARM ON AND CALL LIGHT WITHIN REACH.
[2024-04-11 03:50] VITALS: BP 103/71; PULSE 88; TEMP 98
--- NOTE | 2024-04-11 05:01 | NUR ---
Agree with shift assessment completed by URBANO Dang
[2024-04-11 07:02] VITALS: BP_SYST 103
[2024-04-11] MEDS ORDERED: PROAIR HFA0.09 MG/AC IH (10:08)
[2024-04-11] MEDS ORDERED: PLAVIX 75MG TAB75 MG PO (10:09)
[2024-04-11] MEDS ORDERED: RANEXA 500MG T500 MG PO (10:09)
[2024-04-11] MEDS ORDERED: IMDUR 30MG30 MG/TAB PO (10:09)
[2024-04-11] MEDS ORDERED: NITROSTAT0.4 MG/TAB SL (10:09)
[2024-04-11] MEDS ORDERED: LIPITOR 80MG80 MG PO (10:09)
[2024-04-11] MEDS ORDERED: EFFEXOR-XR150 MG PO (10:10)
[2024-04-11] MEDS ORDERED: DEPAKOTE 250MG250 MG PO (10:10)
[2024-04-11] MEDS ORDERED: SEROQUEL 1100 MG/TAB PO (10:10)
[2024-04-11] MEDS ORDERED: PRINIVIL20 MG PO (10:10)
[2024-04-11] MEDS ORDERED: WELLBUTRIN XL300 M1 PO (10:10)
[2024-04-11] MEDS ORDERED: ASPIRIN E.C. 8181 MG PO (10:10)
[2024-04-11] MEDS ORDERED: RT ADVAIR HFA 1112 G IH (10:11)
[2024-04-11] MEDS ORDERED: MAG-AL LIQUID 230 ML PO (10:12)
[2024-04-11] MEDS ORDERED: PROTONIX 40MG T40 MG PO (10:12)
[2024-04-11] MEDS ORDERED: ZOFRAN ODT4 MG PO (10:12)
--- NOTE | 2024-04-11 13:00 | NUR ---
Discharge QIM scores were reviewed by the team. Code of 5 chosen for oral hygiene was determined by team discussion to be the most usual performance for this patient during the discharge assessment period. Code of 4 chosen for toileting hygiene was determined by team discussion to be the most usual performance for this patient during the discharge assessment period. Code of 4 chosen for toilet transfers was determined by team discussion to be the most usual performance for this patient during the discharge assessment period.--Carolyne Macedo, PD
--- NOTE | 2024-04-11 13:41 | NUR ---
distillery worker was notified patient was concerned about discharging to facility without being able to get her clothing from her apartment. SW explained she would speak with the facility to see if they could transport her sometime this week or if her family would need to assist. [facility] whom explained they were going to test her mental status upon admission and she would ask transportation if that would be something they could do. NILE explained patient has gone back and forth with the social work professor about understanding she is going to a facility but then asking the social work professor to look into getting her an apartment on the first floor at her apartment complex. SW explained she has explained that she would be going to live at this facility and the patient understands it but SW explained she wanted to make sure they knew this in case it caused issues if they transported her to her apartment. Samreen at [facility] explained they likely would not transport her to her apartment but her family could assist her with this. NILE faxed discharge orders and updates to [facility]. NILE contacted [facility] and confirmed transportation time of 130-2 pm. SW contacted patient's brother, Sylvain, and provided the update of patient being transferred today between 130-2 and that patient was worried about not being able to get her belongings from her apartment. Sylvani expressed he and Don were working on this with her and may look at picking up Maria Guadalupe from the facility in [place] this weekend to take her to the apartment. NILE notified patient's nurse and batch unit treater of discharge time. Discharge plan: [facility]
--- NOTE | 2024-04-11 14:06 | NUR ---
REPORT CALLED TO RN THAT WILL TAKE CARE OF PATIENT AT [facility] IN [place]. ALL QUESTIONS ANSWERED.
--- NOTE | 2024-04-11 17:38 | NUR ---
PATIENT ESCORTED OFF UNIT VIA WHEELCHAIR BY PCT AND LTC STAFF. ALL BELONGINGS WITH PATIENT.
== END 2024-04-11 17:00 | DRG 560 ==
PROVIDERS: Internal Medicine; ADMIT Physical Medicine & Rehabilitation Sports Medicine
DX: S92.352D Displaced fracture of fifth metatarsal bone, left foot, subsequent encounter for fracture with routine healing (principal); C21.0 Malignant neoplasm of anus, unspecified; R26.89 Other abnormalities of gait and mobility; R53.1 Weakness; I25.2 Old myocardial infarction; I25.10 Atherosclerotic heart disease of native coronary artery without angina pectoris; E78.5 Hyperlipidemia, unspecified; D64.9 Anemia, unspecified; N18.9 Chronic kidney disease, unspecified; I12.9 Hypertensive chronic kidney disease with stage 1 through stage 4 chronic kidney disease, or unspecified chronic kidney disease; G47.00 Insomnia, unspecified; F32.A Depression, unspecified; F41.9 Anxiety disorder, unspecified; K52.9 Noninfective gastroenteritis and colitis, unspecified; R30.0 Dysuria; R06.02 Shortness of breath; R07.9 Chest pain, unspecified; R25.9 Unspecified abnormal involuntary movements; R55 Syncope and collapse; R53.81 Other malaise; I69.320 Aphasia following cerebral infarction; D72.819 Decreased white blood cell count, unspecified; S09.90XD Unspecified injury of head, subsequent encounter; Z74.09 Other reduced mobility; Z86.11 Personal history of tuberculosis; Z86.69 Personal history of other diseases of the nervous system and sense organs; Z79.02 Long term (current) use of antithrombotics/antiplatelets; Z79.899 Other long term (current) drug therapy; Z95.818 Presence of other cardiac implants and grafts; Z95.5 Presence of coronary angioplasty implant and graft; W18.30XD Fall on same level, unspecified, subsequent encounter; R11.2 Nausea with vomiting, unspecified
CPT/HCPCS: A9284